=== PATIENT | male | born 1980 | race Caucasian/White ===

== ENCOUNTER 2022-01-25 13:42 | Inpatient (IN) | payer MEDICAID, SELFPAY ==
[2022-01-25 13:42] VITALS: BP 151/86; PULSE 96; RESP 16; TEMP 36.6; O2SAT 100; BMI 28.7
--- NOTE | 2022-01-25 13:56 | EX.ED.SAOD ---
HPI History of Present Illness Chief Complaint: Substance Abuse Narrative Narrative: Patient presents for detox from opiates. He states that his brothers have both been through the program here. He admits to snorting fentanyl yesterday evening. This morning, few hours ago, there was some residual left that he snorted. He states he starting to feel nauseated and shaky. He has not been through a formal detox program previously, but states that he has self detoxed. He also admits to smoking crystal meth on occasion. He does not drink alcohol. He does smoke cigarettes. He denies any suicidal ideation. He presents for entry into the detox program for opiates. [facility] Medical History (Updated 01/25/22 @ 14:[address] Jodi Calixto DO) Methamphetamine use Opiate abuse, continuous Tobacco abuse Home Medications NK 01/25/22 [History Last Taken Unknown] Allergy/AdvReac Type Severity Reaction Status Date / Time No Known Allergies Allergy Verified 01/25/22 13:44 Family History (Updated 01/25/22 @ 14:[address] Jodi Calixto DO) Other Opiate abuse, continuous Social History (Updated 01/25/22 @ 14:[address] Jodi Calixto DO) Smoking Status: Current every day smoker tobacco type: cigarettes Smoking packs per day: 1 Smoking cigarettes per day: 20.0 alcohol intake: never substance use type: heroin, amphetamines and methamphetamine ROS ROS ED ROS Narrative Constitutional: No fever, no chills. HEENT: No sore throat. No neck pain. No loss of vision. No rhinorrhea. Cardiovascular: No chest pain. No palpitations. No pedal edema. Respiratory: No cough, no shortness of breath. Abdominal: No abdominal pain. Positive nausea. No vomiting. Genitourinary: No dysuria. No hematuria. Musculoskeletal: No myalgias. No arthralgias. Neurologic: No headaches. No dizziness. No lightheadedness. Positive shakiness. Skin: No rash. No change in color. Psychiatric: No depression. No anxiety. EXAM Physical Exam Const Vital Signs: 01/25/22 13:42 Temperature 98 F Temperature Source Temporal Pulse Rate 96 Respiratory Rate 16 Blood Pressure 151/86 H Blood Pressure Mean 107 Pulse Ox 100 Oxygen Delivery Method Room Air MDM MDM MDM Narrative Medical decision making narrative: Laboratory work and urine drug screen will be obtained. I will discuss patient with hospitalist for admission for detox. I discussed the patient with Dr. Calixto. He will be admitted to [facility] in stable condition. Discharge Plan Dx/Rx/DC Orders Clinical Impression: Fentanyl use disorder, severe, dependence, Polysubstance abuse, Desire for detoxification Disposition Disposition: Acute Care Hospital [facility]
--- NOTE | 2022-01-25 14:48 | PCM.HP.STD ---
[facility] - General General Date of Admission: 01/25/22 Date of Service: 01/25/22 Chief Complaint: Opiate detox HPI Narrative IMELDA TOM, is a 41 M who presented to the emergency department was coming hospital requesting opiate detox. The patient states that he has been a longtime user of heroin and was initially an IV user until his veins were difficult to access and now he uses intranasal heroin. He states he uses as much as he can do daily which is approximately 2 to 3 g. He uses approximately 1 g per use. He states he also uses intermittent methamphetamines. He denies any other drug use. He smokes approximately 1 pack of cigarettes a day and denies any alcohol use. His last use was last evening at approximately 530. He has never undergone detox before but states that both of his brothers have been through the detox program here. All lab work are pending at the time of admission. [facility] Medical History (Updated 01/25/22 @ 14:[address] Jodi Calixto DO) Methamphetamine use Opiate abuse, continuous Tobacco abuse Home Medications NK 01/25/22 [History Last Taken Unknown] Allergy/AdvReac Type Severity Reaction Status Date / Time No Known Allergies Allergy Verified 01/25/22 13:44 Family History (Updated 01/25/22 @ 14:[address] Jodi Calixto DO) Other Opiate abuse, continuous no surgical history Social History (Updated 01/25/22 @ 14:[address] Jodi Calixto DO) Smoking Status: Current every day smoker tobacco type: cigarettes Smoking packs per day: 1 Smoking cigarettes per day: 20.0 alcohol intake: never substance use type: heroin, amphetamines and methamphetamine ROS Constitutional Constitutional: Reports chills and malaise; Denies anorexia, change in weight, fatigue, fever(s), night sweats, weakness or other Eyes Eyes: Denies blurry vision, change in eye color, change in vision, discharge from eye(s), double vision, erythema, eye pain, loss of vision or other ENT HEENT: Reports ear pain and hearing loss; Denies abnormal hearing, dysphagia, epistaxis, headache(s), nasal congestion, nasal discharge, post nasal drip, sinus pressure, sore throat or other Cardiovascular Cardiovascular: Denies chest pain, claudication, dyspnea on exertion, edema, lightheadedness, orthopnea, palpitations, paroxysmal nocturnal dyspnea, rapid heart rate, syncope or other Respiratory/Chest Respiratory/Chest: Denies cough, dyspnea, excessive phlegm production, hemoptysis, productive cough, shortness of breath at rest, shortness of breath with exertion, wheezing or other Gastrointestinal Gastrointestinal: Denies abdominal pain, coffee ground emesis, constipation, diarrhea, dyspepsia, hematemesis, hematochezia, loose stools, melena, nausea, vomiting or other Genitourinary Genitourinary: Denies burning urination, difficulty urinating, dysuria, hematuria, nocturia, urinary frequency, urinary hesitancy, urinary incontinence, urinary urgency or other Musculoskeletal Musculoskeletal: Denies arthralgias, back pain, joint pain, joint stiffness, joint swelling, myalgias, neck pain or other Neurologic Neurologic: Denies abnormal gait, abnormal speech, confusion, disequilibrium, dizziness, focal weakness, headache(s), numbness, paresthesias, seizure-like activity, seizures, syncope, tingling, tremor(s) or other Psychiatric Psychiatric: Reports anxiety; Denies depression, homicidal ideation, suicidal ideation or other Endocrine Endocrinology: Denies change in body appearance, cold intolerance, excessive sweating, heat intolerance, polydipsia, polyuria or other Hematologic/Lymphatic Hematologic/Lymphatic: Denies anemia, easy bleeding, easy bruising, lymphadenopathy or other Allergic/Immunologic Allergic/Immunologic: Denies rhinitis, hives, eczemia, asthma or other Vital Signs Vital Signs Vital Signs: 01/25/22 13:42 Temperature 98 F Temperature Source Temporal Pulse Rate 96 Respiratory Rate 16 Blood Pressure 151/86 H Blood Pressure Mean 107 Pulse Ox 100 Oxygen Delivery Method Room Air Weight Weight: 90.718 kg Body Mass Index (BMI) 28.7 Physical Exam Const alert, oriented x3, no apparent distress and well nourished Constitutional Narrative: Overweight middle-aged white male sitting up in bed, nursing at bedside obtaining lab, appears comfortable nontoxic General Appearance: cooperative HEENT normocephalic, head/scalp atraumatic, hearing grossly normal bilaterally and moist oral mucous membranes HEENT Narrative: Mallampati is 2, dentition is poor, no thrush Eyes PERRL, EOMs intact bilaterally and conjunctivae normal Neck no lymphadenopathy, supple and no JVD Neck Narrative: Trachea midline, no thyroid enlargement Resp normal respiratory effort, no retractions, no use of accessory muscles and clear to auscultation bilaterally Auscultation: Negative for crackles, rales, rhonchi or wheezes Cardio regular rate, regular rhythm, S1 normal heart sound, S2 normal heart sound, no murmurs, no rub, no gallops, no clicks and no JVD GI normal to inspection, nondistended, normoactive bowel sounds, soft to palpation, non-tender and non-distended; Negative for hepatosplenomegaly Extremity no clubbing, cyanosis or edema Peripheral Pulses: Yes pulses 2+ throughout Skin no wounds, skin turgor normal, no jaundice, no petechiae and no mottling Skin Narrative: Old track fong noted Neuro oriented x3, CN's II-XII intact bilaterally, moves all extremities and no focal motor deficits Sensorium / Orientation: awake and alert Speech: speech normal Motor Exam: strength 5/5 throughout Psych Mood & Affect: anxious Assessment & Plan Assessment/Plan (1) Polysubstance abuse: (2) Desire for detoxification: (3) Opiate withdrawal: PLAN: Acute opiate withdrawal -Uses 2 to 3 g daily -Last use was on the evening of 01/24/2022 -Start buprenorphine taper when appropriate per COWS score -Supportive medications -With history of IV use we will check HIV and hepatitis panel -Consult 180 Tobacco abuse -Nicotine patch 21 mics -Patient smokes 1 pack/day -Recommend cessation Polysubstance abuse -Urine tox is pending -Patient admits to opiate use in the form of heroin as well as amphetamine use DVT prophylaxis -Low risk -Early ambulation protocol CODE STATUS -Full code Charges/Coding Visit Charges Inpatient E&M: 42848 Init Hosp L2
[2022-01-25 15:51] LABS: ALB/GLOB Ratio 1.1 RATIO (0.9-2.4); AST(SGOT) 12 U/L (15-37); Alanine Aminotransfer ALT/SGPT 18 U/L (16-61); Alkaline Phosphatase 82 U/L (45-117); Anion Gap 4 (5-15); BUN 13 mg/dL (7-18); BUN/Creat Ratio 16.6 RATIO (10-20); Calcium,Total 8.8 mg/dL (8.5-10.1); Chloride 109 mmol/L (98-107); Creatinine, Serum 0.78 mg/dL (0.70-1.30); EST Glomerular Filtration Rate 117 mL/min (>60); Est Glom Filt Rate - Afr Amer 141 mL/min (>60); Estimated Creatinine Clearance 131.29 ml/min; Globulin 3.7 g/dL (2.2-4.2); Glucose 122 mg/dL (74-106); Protein, Total 7.7 g/dL (6.4-8.2); Sodium Level 137 mmol/L (136-145)
[2022-01-25 16:03] VITALS: BMI 28.6
[2022-01-25 16:09] VITALS: BP 129/76; PULSE 84; RESP 19; TEMP 36.8; O2SAT 97
--- NOTE | 2022-01-25 16:12 | NURSING ---
per Dr. Beckman, okay to send patient upstairs without urine and labs due to difficult stick. this RN also spoke with Dr Calixto and she said it was fine to take pt upstairs without labs.
--- NOTE | 2022-01-25 16:12 | CM.ED ---
Social Work Met with patient in room. Introduced self and psychologist social role. Patient agreeable to speak with this psychologist social. Patient confirms to be seeking medical management of withdrawal symptoms and to have signed contract for [facility]. Patient denies any questions/concerns and that support system is aware that patient is in the hospital. Patient reports history of services thought [facility] as an outpatient. Telephone call to treatment navigatorMassiel. Massiel updated on patient admission to [facility]. Massiel plans to see patient tomorrow. PLAN: [facility]. Sharon SNIDER, BJORN
[2022-01-25 16:27] VITALS: BP 119/68; PULSE 91; RESP 18; TEMP 36.8; O2SAT 99
[2022-01-25] MEDS: hydrOXYzine PAM 25 MG Capsule 50 MG PO ×2 (16:38→21:40)
[2022-01-25] MEDS: Acetaminophen 325 MG Tablet 650 MG PO (16:38)
[2022-01-25] MEDS: Ondansetron 8 MG Tablet PO (16:38)
[2022-01-25] MEDS: Buprenorphine HCl 2 MG TAB.SUBL SL (17:10)
[2022-01-25] MEDS: Carbamide Peroxide 15 ML Bottle 5 DRP OTIC (17:11)
[2022-01-25 19:55] LABS: Amphetamine Urine VISTA NEGATIVE (<1000 ng/mL); Barbiturate Urine VISTA NEGATIVE (< 200 ng/mL); Benzodiazepine Urine VISTA NEGATIVE (< 200 ng/mL); Cocaine Urine VISTA POSITIVE (< 300 ng/mL); Ecstacy Urine VISTA NEGATIVE (< 500 ng/mL); Methadone Urine VISTA NEGATIVE (< 300 ng/mL); PCP Urine VISTA NEGATIVE (< 25 ng/mL); THC Urine VISTA NEGATIVE (< 50 ng/mL); Vista UDS pH Range 6
[2022-01-25 20:30] VITALS: BP 124/69; PULSE 80; RESP 18; TEMP 37.2; O2SAT 96
[2022-01-26] MEDS: Buprenorphine HCl 2 MG TAB.SUBL SL ×3 (01:53→16:57)
[2022-01-26 02:05] VITALS: BP 133/74; PULSE 71; RESP 18; TEMP 36.9; O2SAT 98
[2022-01-26 05:09] LABS: Absolute Lymphocyte Count 2.45 X10^3/uL (0.83-4.51); Absolute Neutrophil Count 7.9 X10^3/uL (2.0-7.7); Basophil# 0.08 X10^3/uL; Basophil% 0.7 % (0-1); Eosinophils% 1.7 % (0-5); Hematocrit 38.5 % (40-54); Hemoglobin 13.5 g/dL (13.0-16.5); Lymphocyte # 2.45 X10^3/ul (0.83-4.51); Lymphocyte % 20.8 % (19-41); Mean Corp Hgb Conc 35.1 g/dL (32-36); Mean Corpuscular Hgb 29.7 pg (27.0-32.0); Mean Corpuscular Volume 84.6 fL (80-94); Mean Platelet Vol. 10.3 fl (6.2-12.0); Monocyte# 1.09 X10^3/uL; Monocyte% 9.2 % (0-10); NRBC Flagged by Analyzer 0 % (0-5); Neutrophil # 7.93 X10^3/uL (2.7-7.7); Neutrophil % 67.3 % (47-70); Platelet Count 283 K/mm3 (150-450); RBC Distribution Width CV 12.7 % (11.6-14.6); RBC Distribution Width SD 38.5 fl (35.1-43.9); Red Blood Count 4.55 M/mm3 (4.6-6.2); White Blood Count 11.8 K/mm3 (4.4-11.0)
[2022-01-26 05:41] LABS: Alcohol, Blood (Medical)-Serum < 3.0 mg/dL
[2022-01-26 08:55] VITALS: BP 145/81; PULSE 78; RESP 16; TEMP 36.7; O2SAT 98
[2022-01-26 09:02] LABS: HIV - WCH Non-Reactive (Nonreactive); Hepatitis B Surface Antibody Reactive; Hepatitis B Surface Antigen Non-Reactive (Nonreactive); Hepatitis C Antibody Non-Reactive (Nonreactive)
--- NOTE | 2022-01-26 13:05 | ADDICTION ---
This typewriter ribbon winder met with PT to conduct ASAM, MSE, DUDIT assessments and to plan for d/c. PT A+Ox4 and participated actively. All assessments completed, and placed in PT's chart. PT plans to f/u with individual counselor at [facility] for follow-up counseling services. PT did not indicate a need for transportation post d/c from [facility].
--- NOTE | 2022-01-26 13:46 | PN.HOSP_ITS ---
Subjective Subjective Patient seen and examined. He complained of left shoulder pain, which he says he gets every time he tries to detox from opiates. Pain goes with use of opiates. He denies any abdominal cramps, increased sweating or tremors. Review of systems otherwise negative. Objective Data Objective Data Vital Signs: Vital Signs Temp Pulse Resp BP Pulse Ox 98.1 F 78 16 145/81 H 98 01/26/22 08:55 01/26/22 08:55 01/26/22 08:55 01/26/22 08:55 01/26/22 08:55 Oxygen Delivery Method Room Air Weight: 199 lb 15.348 oz Body Mass Index (BMI) 28.6 Intake & Output: Intake and Output for Last 24 Hours 01/24/22 01/25/22 01/26/22 23:59 23:59 23:59 Intake Total 125 / 125 Balance 125 / 125 Lab / Micro Data Result Diagrams: 01/26/22 05:02 01/25/22 15:30 Labs: Laboratory Results - last 24 hr 01/25/22 15:30: Sodium 137, Potassium 4.0, Chloride 109 H, Carbon Dioxide 24.0, Anion Gap 4 L, BUN 13, Creatinine 0.78, Estim Creat Clear Calc 131.29, Est GFR (MDRD) Af Amer 141, Est GFR (MDRD) Non-Af 117, BUN/Creatinine Ratio 16.6, Glucose 122 H, Calcium 8.8, Total Bilirubin 0.50, AST 12 L, ALT 18, Alkaline Phosphatase 82, Total Protein 7.7, Albumin 4.0, Globulin 3.7, Albumin/Globulin Ratio 1.1 01/25/22 19:16: Urine Opiates Screen POSITIVE H, Urine Methadone Screen NEGATIVE, Ur Barbiturates Screen NEGATIVE, Ur Phencyclidine Scrn NEGATIVE, Ur Amphetamines Screen NEGATIVE, MDMA (Ecstasy) Screen NEGATIVE, U Benzodiazepines Scrn NEGATIVE, Urine Cocaine Screen POSITIVE H, U Cannabinoids Screen NEGATIVE, Ur Drug Screen Comment 01/26/22 05:02: WBC 11.8 H, RBC 4.55 L, Hgb 13.5, Hct 38.5 L, MCV 84.6, MCH 29.7, MCHC 35.1, RDW Std Deviation 38.5, RDW Coeff of Roselyn 12.7, Plt Count 283, MPV 10.3, Immature Gran % (Auto) 0.300, Neut % (Auto) 67.3, Lymph % (Auto) 20.8, Linn % (Auto) 9.2, Eos % (Auto) 1.7, Baso % (Auto) 0.7, Absolute Neuts (auto) 7.9 H, Absolute Lymphs (auto) 2.45, Nucleated RBC % 0 01/26/22 05:02: Ethyl Alcohol < 3.0 01/26/22 05:02: Hep Bs Antigen Non-Reactive, Hep Bs Antibody Reactive, Hepatitis C Antibody Non-Reactive, HIV 1&2 Antibody Non-Reactive Physical Exam Const alert, oriented x3 and no apparent distress Exam Limitations: no limitations HEENT head/scalp atraumatic, moist oral mucous membranes and oropharynx normal Head and Scalp: normocephalic Eyes PERRL, EOMs intact bilaterally and conjunctivae normal Neck no lymphadenopathy, supple and no JVD Resp normal respiratory effort, no retractions, no use of accessory muscles and clear to auscultation bilaterally Cardio regular rate, regular rhythm, S1 normal heart sound, S2 normal heart sound and no murmurs GI normal to inspection, nondistended, normoactive bowel sounds, soft to palpation, non-tender, non-distended and hepatosplenomegaly Extremity normal to inspection, full ROM and no clubbing, cyanosis or edema Peripheral Pulses: Yes pulses 2+ throughout Skin no rashes or lesions noted Neuro oriented x3 and CN's II-XII intact bilaterally Sensorium / Orientation: awake and alert Psych affect normal Assessment & Plan Assessment/Plan (1) Opiate withdrawal: (2) Polysubstance abuse: (3) Desire for detoxification: PLAN: #Acute opioid withdrawal * on opioid withdrawal protocol with buprenorphine * adjunctive meds for symptomatic relief * monitor COWS score * urine tox was also positive for cocaine in addition to opiates * hep B surface antibody was positive; hep C antibody and HIV screen were negative. * #Nicotine dependence * counseled to quit. Nicotine patch 21mg daily * DVT prophylaxis: low risk. Encourage ambulation. Charges/Coding Visit Charges Inpatient E&M: 04139 Subs Hosp L2
[2022-01-26 15:00] VITALS: BP 121/74; PULSE 71; RESP 18; TEMP 36.9; O2SAT 97
[2022-01-26] MEDS: Gabapentin 300 MG Capsule PO (19:31)
--- NOTE | 2022-01-26 19:57 | NURSING ---
1919: Pt anxious and expressing interests in leaving. Pt educated and encouraged to stay, agreeable to try something for anxiety. PRN given, pt resting in bed. 1954: Pt called again and asked to leave AMA. Will contact
--- NOTE | 2022-01-26 20:08 | NURSING ---
notified of pt's desire to leave AMA. Pt signed form and given belongings.
--- NOTE | 2022-01-27 07:12 | PCM.DC.SUM ---
Providers Date of Admission: 01/25/22 Primary Care Physician: Michelle Primary Care Phys Reason For Visit: ACUTE HEROIN WITHDRAWAL Diagnosis Discharge Diagnosis (1) Opiate withdrawal: Status: Acute Code(s): F11.23 - Opioid dependence with withdrawal (2) Polysubstance abuse: Status: Acute Code(s): F19.10 - Other psychoactive substance abuse, uncomplicated (3) Desire for detoxification: Status: Acute Medications at Discharge Home Medications NK 01/25/22 Hospital Course Operations None Procedures None Summary of Care Provided Minutes Spent on Discharge: 45 Hospital Course: Patient is a 41-year-old male with past medical history as outlined was admitted through the ED on 01/25/2022 for acute opiate withdrawal. Patient usually uses heroin IV and said recently had veins have become difficult to access he was now using intranasal heroin. He used about 2 to 3 g daily. He also used methamphetamines intermittently and admitted to smoking 1 pack of cigarettes daily. He was admitted to be managed for acute opioid withdrawal. He was started on opiate withdrawal protocol with buprenorphine. Patient was tolerating the detox process well until 01/26/2022 when he signed out AGAINST MEDICAL ADVICE. Patient was seen and examined on the day he signed out AGAINST MEDICAL ADVICE. He had initially complained of some shoulder pain which he said he got every time he tried to detox and was only relieved by him using opiates. He had no other complaints and review of systems otherwise negative. Patient however signed out AGAINST MEDICAL ADVICE on the evening of 01/26/2022. Physical Exam Const alert, oriented x3, no apparent distress and well nourished General Appearance: cooperative, comfortable and well kempt Exam Limitations: no limitations HEENT normocephalic, head/scalp atraumatic, hearing grossly normal bilaterally, moist oral mucous membranes and oropharynx normal Eyes PERRL, EOMs intact bilaterally and conjunctivae normal Neck no lymphadenopathy, supple and no JVD Resp normal respiratory effort, no retractions, no use of accessory muscles and clear to auscultation bilaterally Auscultation: Negative for crackles, rales, rhonchi or wheezes Cardio regular rate, regular rhythm, S1 normal heart sound, S2 normal heart sound, no murmurs, no rub, no gallops, no clicks and no JVD GI normal to inspection, nondistended, normoactive bowel sounds, soft to palpation, non-tender, non-distended and hepatosplenomegaly Extremity normal to inspection, full ROM and no clubbing, cyanosis or edema Skin no rashes or lesions noted, no wounds, skin turgor normal, no jaundice, no petechiae and no mottling Skin Narrative: Old track fong noted Neuro oriented x3, CN's II-XII intact bilaterally, moves all extremities and no focal motor deficits Sensorium / Orientation: awake and alert Speech: speech normal Motor Exam: strength 5/5 throughout Psych affect normal Mood & Affect: anxious Weight / BMI Weight Weight: 199 lb 15.348 oz Body Mass Index (BMI) 28.6 ABG / Lab / Microbiology Data Result Diagrams: 01/26/22 05:02 01/25/22 15:30 Laboratory: Laboratory Results - last 24 hr 01/26/22 05:02: Hep Bs Antigen Non-Reactive, Hep Bs Antibody Reactive, Hepatitis C Antibody Non-Reactive, HIV 1&2 Antibody Non-Reactive D/C Instructions Discharge Diet: Low fat / Low cholesterol Discharge Activity: Return to Normal Activity Weight Bearing Status: Weight bearing as tolerated Call your doctor if you observe: Fever of 101 or Higher, Shortness of breath, Swelling in the ankles and Increased palpitations (irregular heartbeat) Meaningful Use Info Meaningful Use Diagnoses (Choose all that apply): None applicable Discharge Plan Admission Admit Date/Time: 01/25/22 14:23 Primary Reason for Your Visit: acute opioid withdrawal Attending Provider: Florence George Primary Care Provider: Care Physician,No Primary Discharge Orders/Prescriptions Prescriptions: No Action NK RF: 0 Referrals / Follow Up: Care Physician,No Primary [Primary Care Provider] - Disposition Disposition (needs filled in before D/C Order can be placed): Against Medical Advice Charges/Coding Visit Charges Inpatient E&M: 23943 Subs Hosp L2
== END 2022-01-26 20:09 | disposition left against medical advice (07) | DRG 770 ==
LOC: ED 14:25 → PCU 14:45
PROVIDERS: Admitting Provider Internal Medicine; Emergency Provider Emergency Medicine; Visit Provider Student in an Organized Health Care Education/Training Program
DX: F11.23 Opioid dependence with withdrawal (principal); F15.90 Other stimulant use, unspecified, uncomplicated; F17.210 Nicotine dependence, cigarettes, uncomplicated
CPT/HCPCS: 36415; 80053; 80307; 82077; 85025; 86703; 86706; 86803; 87340; 99251; 99283; 99406; G0463

== ENCOUNTER 2022-08-07 05:06 | Inpatient (IN) | payer MEDICAID, SELFPAY ==
[2022-08-07] VITALS (8 sets, daily range): BP systolic 126–155; BP diastolic 66–105; PULSE 79–114; RESP 16–20; TEMP 36.4–37.3; O2SAT 94–100; BMI 30.9; BMI 30.7
--- NOTE | 2022-08-07 05:29 | EDS_ITS ---
HPI History of Present Illness Chief Complaint: Substance Abuse Narrative Narrative: Patient is a 42-year-old male who has a history of opioid/fentanyl abuse. He was admitted to the detox program in January of this year. He states he was clean until roughly May and for the past 2 to 2-1/2 months has been using fentanyl daily. He states he can do anywhere from 1 to 5-6 lines a day depending on his supply and how he feels. He states he will also occasionally do crystal meth. He states that he last used crystal meth and fentanyl last night around 11 PM/midnight. He states his younger brother recently went to the program and got clean. He states he now has a desire to do this as well and therefore comes in for evaluation. He denies any suicidal ideation. [facility] Medical History Anxiety Depression Desire for detoxification Methamphetamine use Opiate abuse, continuous Opiate withdrawal Polysubstance abuse Smoker Substance abuse Tobacco abuse Home Medications NK 08/07/22 [History Last Taken Unknown] Allergy/AdvReac Type Severity Reaction Status Date / Time No Known Allergies Allergy Verified 01/25/22 13:44 Family History (Updated 01/25/22 @ 14:[address] Jodi Calixto DO) Other Opiate abuse, continuous Social History (Updated 01/25/22 @ 14:[address] Jodi Calixto DO) Smoking Status: Current every day smoker tobacco type: cigarettes alcohol intake: never substance use type: heroin, amphetamines and methamphetamine ROS ROS ED Constitutional Constitutional ED: Denies chills or fever(s) ENT ENT ED: Denies sore throat Cardiovascular Cardiovascular: Denies chest pain Respiratory/Chest Respiratory/Chest: Denies cough or dyspnea Gastrointestinal Gastrointestinal: Denies abdominal pain, diarrhea, nausea or vomiting Genitourinary Genitourinary ED: Denies dysuria Musculoskeletal Musculoskeletal: Denies myalgias Integumentary Denies rash Neurologic Neurologic: Denies headache(s) Psychiatric Psychiatric: Denies suicidal ideation or suicidal thoughts Hematologic/Lymphatic Hematologic/Lymphatic: Denies easy bleeding or easy bruising EXAM Physical Exam Const Vital Signs: 08/07/22 05:08 Temperature 97.6 F L Temperature Source Oral Pulse Rate 102 H Respiratory Rate 18 Blood Pressure 155/79 H Blood Pressure Mean 104 Pulse Ox 99 Oxygen Delivery Method Room Air Positive well nourished and well developed General Appearance ED: well developed Eyes EOMs intact bilaterally Eyes Narrative: Pupils are slightly constricted and sluggish to respond consistent with history of opioid use approximately 5 hours ago Neck supple Resp normal respiratory effort and clear to auscultation bilaterally Cardio regular rhythm Rate: other Other Details: Slightly tachycardic rate with regular rhythm GI non-tender and non-distended GI Narrative: Abdomen is soft nontender nondistended with hypoactive bowel sounds no voluntary guarding or rigidity no pulsatile mass Auscultation: hypoactive bowel sounds Palpation: soft Extremity normal to inspection Neuro oriented x3 and CN's II-XII intact bilaterally Sensorium / Orientation: alert Psych mental status grossly normal Skin no rashes or lesions noted Skin Narrative: No diaphoresis noted MDM MDM MDM Narrative Medical decision making narrative: Patient presented to the ER slightly tachycardic and hypertensive but otherwise afebrile. He admitted to fentanyl and crystal meth use which she is done in the past. At this time withdrawal symptoms are minimal and he does express desire to go through detox. Therefore at this time basic screening labs will be obtained but as patient is hemodynamically stable he will be admitted to the hospital to undergo the detox program for opioids Discharge Plan Triage Chief Complaint: Substance Abuse ED Provider: Caden Stern Dx/Rx/DC Orders Clinical Impression: Opioid dependence with current use, Polysubstance abuse Prescriptions: No Action NK Primary Care Provider: Care Physician,No Primary Referrals: Care Physician,No Primary [Primary Care Provider] - Disposition Disposition: Acute Care Hospital [facility]
--- NOTE | 2022-08-07 05:29 | HP.PCM.HOS_ITS ---
HPI - General General Date of Admission: 08/07/22 Date of Service: 08/07/22 Chief Complaint: Acute Opiate Withdrawal HPI Narrative The patient is a 42 y/o M w/ PMHx: Opiate Abuse including IV Heroin as well as fentanyl eventually transitioned to intranasal methods secondary to lack of decent vasculature, Hx Methamphetamine use, Tobacco use, Anxiety and Depression, most recently admitted 01/25/22 for opiate withdrawal treatment leaving AMA at that time but notes he was clean for a couple months who now re-presents to the [facility] ED on 08/07/22 with history of onset of early acute opiate withdrawal starting early this morning following last dose of specifically fentanyl the evening prior with mild agitation and restlessness. He notes normally he will start to have body aches, abdominal cramping, nausea in addition. He notes living at home with his mother and his brother who is recently clean. Work-up in the ED included T97.6, heart rate 102, BP 155/79, respiratory rate 18, 99% on room air, pending CBC, CMP, UDS upon requested evaluation of patient. [facility] Medical History (Updated 08/07/22 @ 05:[address] Rose Ordonez MD) Anxiety Depression Methamphetamine use Opioid dependence with current use Polysubstance abuse Substance abuse Tobacco abuse Home Medications NK 08/07/22 [History Last Taken Unknown] Allergy/AdvReac Type Severity Reaction Status Date / Time No Known Allergies Allergy Verified 01/25/22 13:44 Family History (Updated 08/07/22 @ 05:[address] Rose Ordonez MD) Father Opiate abuse, continuous Heart disease Hypertension Mother Heart disease Hypertension Brother Opiate abuse, continuous Surgical History (Updated 08/07/22 @ 05:[address] Rose Ordonez MD) History of dental surgery Social History (Updated 08/07/22 @ 05:[address] Rose Ordonez MD) household members: other details: Lives with his mother and his brother. Smoking Status: Current every day smoker tobacco type: cigarettes Smoking packs per day: 1 Smoking cigarettes per day: 20.0 alcohol intake: never substance use type: heroin, amphetamines, methamphetamine and other details: Hx prior IVDA->transitioned to snorting. ROS ROS Narrative Admission Review of Systems: CONSTITUTIONAL: No weight loss, fever, chills, + weakness or fatigue. HEENT: + Mild rhinorrhea/congestion. Eyes: No visual loss, blurred vision, double vision or yellow sclerae. Ears, Nose, Throat: No hearing loss, sneezing or sore throat. SKIN: No rash or itching, lesions, wounds. CARDIOVASCULAR: No chest pain, chest pressure or chest discomfort, palpitations, edema, orthopnea, syncopal events. RESPIRATORY: No shortness of breath, cough or sputum, wheezing, hemoptysis. GASTROINTESTINAL: No anorexia, abdominal cramping, nausea, vomiting, diarrhea, melena, BRBPR. GENITOURINARY: No dysuria, frequency, urgency or retention. NEUROLOGICAL: No headache, dizziness, syncope, paralysis, ataxia, numbness or tingling in the extremities, focal weakness, change in bowel or bladder control, seizure. MUSCULOSKELETAL: + muscle, back pain, joint pain or stiffness. HEMATOLOGIC: No anemia, bleeding or bruising. LYMPHATICS: No enlarged nodes. No history of splenectomy. PSYCHIATRIC: + history of depression or anxiety. ENDOCRINOLOGIC: No reports of sweating, cold or heat intolerance. No polyuria or polydipsia. ALLERGIES: No history of asthma, hives, eczema or rhinitis. Vital Signs Vital Signs Vital Signs: 08/07/22 05:08 Temperature 97.6 F L Temperature Source Oral Pulse Rate 102 H Respiratory Rate 18 Blood Pressure 155/79 H Blood Pressure Mean 104 Pulse Ox 99 Oxygen Delivery Method Room Air Weight Weight: 216 lb 0.848 oz Body Mass Index (BMI) 30.9 Physical Exam Narrative Physical Examination: General: Awake, alert, oriented x 3 and cooperative, seated upright in the ED bed, restless, notes withdrawal symptoms not yet severe. Skin: Normal color, normal turgor, no icterus, no cyanosis. HEENT: AT/NC, EOMI, PERRLA, mildly dry MM, no carotid bruits or JVD noted. Lungs: Diminished, greater bases, appropriate effort, no rales, ronchi or wheezing. Heart: Mildly tachycardic with regular rhythm; no gallop, rub audible. Abdomen: Soft, NTTP, ND, hyperactive BS, no HSM. Extremities: No cyanosis, clubbing, or edema. Neurological: Patient awake, alert, oriented as noted, cognitive function intact; pupils equally reactive to light and accommodation, cranial nerves II- XII grossly normal, moving all 4 extremities, no focal deficits, strength preserved, restless. Psychiatric: Affect appears fatigued, restless, no acute evidence of depressive or anxiety feelings but does have underlying history. Results Lab / Micro Data Result Diagrams: 08/07/22 05:13 08/07/22 05:13 Assessment & Plan Assessment/Plan (1) Polysubstance abuse: PLAN: Plan The patient is a 42 y/o M w/ PMHx: Opiate Abuse including IV Heroin as well as fentanyl eventually transitioned to intranasal methods secondary to lack of decent vasculature, Hx Methamphetamine use, Tobacco use, Anxiety and Depression, most recently admitted 01/25/22 for opiate withdrawal treatment leaving AMA at that time but notes he was clean for a couple months who now re-presents to the [facility] ED on 08/07/22 with history of onset acute opiate withdrawal. #1. Acute Opiate Withdrawal: Will admit to AL, routine labs including CBC, CMP, urine for drug screen obtained in the ED and pending upon evaluation, will initiate and continue on protocol with tapering course of Subutex, as needed tylenol, ibuprofen, bowel regimen, gabapentin, Bentyl, Vistaril, methocarbamol, clonidine, PRN nightly trazodone for insomnia, IV fluids, IV antiemetics. Once patient clinically improved and completion of taper nearing will plan consultation with case management for transition to next level of rehabilitation care. #2. Elevated BP without hypertensive diagnosis: Likely secondary to acute presentation but will continue to monitor and if remains elevated would add oral regimen, as needed IV hydralazine in interim. #3. Polysubstance Abuse, IVDA Hx: Given patient history of prior IVDA now transitioned to intranasal regimen, to be cautious will obtain HIV and hepatitis panel. If patient were hepatitis positive he would currently not be a candidate for treatment until he was clean, sober x 6 months, documented attendance NA or AA meetings, counseling and ongoing negative drug screens. #4. Anxiety and depression: Patient's not on any chronic regimen per current list, likely contributes to substance abuse, encourage counseling and treatment as needed with 180. #5. Tobacco Abuse: Encouraged cessation, inpatient consultation per RT, NR if desired. #6. DVT prophylaxis: Low risk. Charges/Coding Visit Charges Inpatient E&M: 89544 Init Hosp L2
[2022-08-07 05:38] LABS: Absolute Lymphocyte Count 3.38 X10^3/uL (0.83-4.51); Basophil# 0.09 X10^3/uL; Eosinophil# 0.36 X10^3/uL; Hematocrit 39.7 % (40-54); Hemoglobin 12.9 g/dL (13.0-16.5); Lymphocyte # 3.38 X10^3/ul (0.83-4.51); Lymphocyte % 37.5 % (19-41); Mean Corp Hgb Conc 32.5 g/dL (32-36); Mean Corpuscular Hgb 30.4 pg (27.0-32.0); Mean Corpuscular Volume 93.4 fL (80-94); Mean Platelet Vol. 12.1 fl (6.2-12.0); Monocyte# 1.15 X10^3/uL; Monocyte% 12.7 % (0-10); NRBC Flagged by Analyzer 0 % (0-5); Neutrophil # 4.02 X10^3/uL (2.7-7.7); Neutrophil % 44.6 % (47-70); POSITIVE COUNT YES; RBC Distribution Width CV 12.9 % (11.6-14.6); RBC Distribution Width SD 44.3 fl (35.1-43.9); Red Blood Count 4.25 M/mm3 (4.6-6.2)
[2022-08-07 05:42] LABS: Differential Indicated SCAN CRITERIA MET
[2022-08-07 06:13] LABS: Differential Comment SCANNED; Platelet Estimate ADEQUATE (ADEQ)
[2022-08-07 06:21] LABS: ALB/GLOB Ratio 1.1 RATIO (0.9-2.4); AST(SGOT) 27 U/L (15-37); Alanine Aminotransfer ALT/SGPT 23 U/L (16-61); Albumin, Serum 3.6 g/dL (3.2-5.0); Alkaline Phosphatase 98 U/L (45-117); Anion Gap 6 (5-15); BUN 22 mg/dL (7-18); BUN/Creat Ratio 24.8 RATIO (10-20); Calcium,Total 8.6 mg/dL (8.5-10.1); Chloride 107 mmol/L (98-107); Creatinine, Serum 0.89 mg/dL (0.70-1.30); EST Glomerular Filtration Rate 101 mL/min (>60); Est Glom Filt Rate - Afr Amer 122 mL/min (>60); Estimated Creatinine Clearance 113.92 ml/min; Globulin 3.4 g/dL (2.2-4.2); Glucose 99 mg/dL (74-106); Potassium 4.4 mmol/L (3.5-5.1); Sodium Level 137 mmol/L (136-145)
[2022-08-07 06:24] LABS: Alcohol, Blood (Medical)-Serum < 3.0 mg/dL
[2022-08-07 06:34] LABS: Amphetamine Urine VISTA POSITIVE (<1000 ng/mL); Barbiturate Urine VISTA NEGATIVE (< 200 ng/mL); Benzodiazepine Urine VISTA NEGATIVE (< 200 ng/mL); Cocaine Urine VISTA NEGATIVE (< 300 ng/mL); Ecstacy Urine VISTA POSITIVE (< 500 ng/mL); Methadone Urine VISTA NEGATIVE (< 300 ng/mL); PCP Urine VISTA NEGATIVE (< 25 ng/mL); THC Urine VISTA NEGATIVE (< 50 ng/mL); Vista UDS pH Range 5
[2022-08-07 09:03] LABS: HIV - WCH Non-Reactive (Nonreactive)
[2022-08-07 09:13] LABS: Hepatitis B Surface Antibody Reactive; Hepatitis B Surface Antigen Non-Reactive (Nonreactive); Hepatitis C Antibody Non-Reactive (Nonreactive)
[2022-08-07] MEDS: Buprenorphine HCl 2 MG TAB.SUBL SL ×2 (09:48→17:09)
[2022-08-07] MEDS: Ensure Plus High Protein 120 ML LIQUID PO (09:50)
--- NOTE | 2022-08-07 11:17 | ADDICTION ---
This policy writer typist attempted to meet with PT. PT was asleep and did not rouse to verbal queuing. This policy writer typist will attempt to meet with PT at next visit on 08/08/21.?
[2022-08-07] MEDS: hydrOXYzine PAM 25 MG Capsule 50 MG PO ×2 (14:02→23:19)
--- NOTE | 2022-08-07 14:32 | PCM.PN.HOSP ---
Subjective Subjective DOS: 08/07/2022 CC: Aches Patient reports that he is feeling achy and unwell, just got Subutex 10 minutes before evaluation. No diarrhea, does not necessarily feel sweaty, no lacrimation or rhinorrhea. Patient still motivated for inpatient detox. No chest pain or shortness of breath. Fluids have been ordered but unable to obtain IV, patient is eating and drinking we will hold off on IV fluids Objective Data Objective Data Vital Signs: Vital Signs Temp Pulse Resp BP Pulse Ox O2 Del Method 98.4 F 114 H 16 153/66 H 98 Room Air 08/07/22 08:44 08/07/22 08:44 08/07/22 08:44 08/07/22 08:44 08/07/22 08:44 08/07/22 08:44 Oxygen Delivery Method Room Air Weight: 97 kg Body Mass Index (BMI) 30.7 Lab / Micro Data Result Diagrams: 08/07/22 05:13 08/07/22 05:13 Labs: Laboratory Results - last 24 hr 08/07/22 05:13: WBC 9.0, RBC 4.25 L, Hgb 12.9 L, Hct 39.7 L, MCV 93.4, MCH 30.4, MCHC 32.5, RDW Std Deviation 44.3 H, RDW Coeff of Roselyn 12.9, Plt Count RADIO DISC JOCKEY, MPV 12.1 H, Immature Gran % (Auto) 0.200, Neut % (Auto) 44.6 L, Lymph % (Auto) 37.5, [place] % (Auto) 12.7 H, Eos % (Auto) 4.0, Baso % (Auto) 1.0, Absolute Neuts (auto) 4.0, Absolute Lymphs (auto) 3.38, Nucleated RBC % 0, Differential Comment SCANNED, Platelet Estimate ADEQUATE 08/07/22 05:13: Sodium 137, Potassium 4.4, Chloride 107, Carbon Dioxide 24.0, Anion Gap 6, BUN 22 H, Creatinine 0.89, Estim Creat Clear Calc 113.92, Est GFR (MDRD) Af Amer 122, Est GFR (MDRD) Non-Af 101, BUN/Creatinine Ratio 24.8 H, Glucose 99, Calcium 8.6, Total Bilirubin 0.30, AST 27, ALT 23, Alkaline Phosphatase 98, Total Protein 7.0, Albumin 3.6, Globulin 3.4, Albumin/Globulin Ratio 1.1 08/07/22 05:13: Ethyl Alcohol < 3.0 08/07/22 05:40: Urine Opiates Screen NEGATIVE, Urine Methadone Screen NEGATIVE, Ur Barbiturates Screen NEGATIVE, Ur Phencyclidine Scrn NEGATIVE, Ur Amphetamines Screen POSITIVE H, MDMA (Ecstasy) Screen POSITIVE H, U Benzodiazepines Scrn NEGATIVE, Urine Cocaine Screen NEGATIVE, U Cannabinoids Screen NEGATIVE, Ur Drug Screen Comment 08/07/22 06:00: HIV 1&2 Antibody Non-Reactive 08/07/22 07:15: Hep Bs Antigen Non-Reactive, Hep Bs Antibody Reactive, Hepatitis C Antibody Non-Reactive Physical Exam Const alert Constitutional Narrative: Oriented, appears slightly diaphoretic HEENT normocephalic and head/scalp atraumatic Eyes Eyes Narrative: EOM grossly intact, anicteric Neck supple Resp normal respiratory effort and clear to auscultation bilaterally Cardio regular rate and regular rhythm GI soft to palpation, non-tender and non-distended Extremity Extremity Narrative: No edema appreciated Neuro moves all extremities Neuro Narrative: No overt focal deficits appreciated Psych Psych Narrative: Cooperative Assessment & Plan Assessment/Plan (1) Polysubstance abuse: PLAN: Plan The patient is a 42 y/o M w/ PMHx: Opiate Abuse including IV Heroin as well as fentanyl eventually transitioned to intranasal methods secondary to lack of decent vasculature, Hx Methamphetamine use, Tobacco use, Anxiety and Depression, most recently admitted 01/25/22 for opiate withdrawal treatment leaving [facility] at that time but notes he was clean for a couple months who now re-presents to the [facility] ED on 08/07/22 with history of onset acute opiate withdrawal. #Acute opiate withdrawal - Subutex taper initiated - As needed Tylenol, ibuprofen, bowel regimen, gabapentin, Bentyl, Vistaril, methocarbamol, clonidine - As needed trazodone nightly - As needed antiemetics -Once patient begins to clinically improve will discuss further discharge planning ? UDS on admission positive for amphetamines and MDMA, prior to admission he reported using fentanyl and heroin. Does have history of IVDA however could no longer find vasculature and transition to intranasal route ? Hepatitis panel and HIV negative for acute process #Elevated BP without hypertensive diagnosis Likely secondary to opioid withdrawal, continue Subutex taper Has hydralazine as needed Would benefit from following with a primary care physician upon discharge #Polysubstance Abuse, IVDA Hx ?UDS positive for MDMA and amphetamines EtOH negative Hepatitis and HIV panel negative. #Anxiety and depression Patient's not on any chronic regimen per current list, likely contributes to substance abuse, encourage counseling and treatment as needed with 180. # tobacco Abuse: Encouraged cessation, inpatient consultation per RT, NR if desired. # DVT prophylaxis: Low risk. Charges/Coding Visit Charges Inpatient E&M: 02220 Subs Hosp L2
[2022-08-07] MEDS: cloNIDine HCl 0.1 MG Tablet PO (19:18)
[2022-08-07] MEDS: Gabapentin 300 MG Capsule PO (19:19)
[2022-08-07] MEDS: Dicyclomine 10 MG Capsule 20 MG PO (19:19)
[2022-08-07] MEDS: Methocarbamol 750 MG Tablet 1500 MG PO (19:19)
[2022-08-08] MEDS: Buprenorphine HCl 2 MG TAB.SUBL SL ×3 (01:00→16:59)
[2022-08-08 02:00] VITALS: BP 109/82; PULSE 71; RESP 18; TEMP 37.1; O2SAT 96
[2022-08-08] MEDS: Methocarbamol 750 MG Tablet 1500 MG PO ×3 (06:31→20:41)
[2022-08-08] MEDS: hydrOXYzine PAM 25 MG Capsule 50 MG PO ×2 (06:31→15:53)
--- NOTE | 2022-08-08 08:21 | PN.HOSP_ITS ---
Subjective Subjective DOS 08/08/2022 CC: Achy Patient continues to feel achy and sweaty, reports feeling just uncomfortable in general. No diarrhea yet , has been eating. Tolerating Subutex. Denies chest pain or shortness of breath. No other complaints voiced this a.m. Objective Data Objective Data Vital Signs: Vital Signs Temp Pulse Resp BP Pulse Ox O2 Del Method 98.7 F 71 18 109/82 H 96 Room Air 08/08/22 02:00 08/08/22 02:00 08/08/22 02:00 08/08/22 02:00 08/08/22 02:00 08/08/22 07:57 Oxygen Delivery Method Room Air Weight: 97 kg Body Mass Index (BMI) 30.7 Intake & Output: Intake and Output for Last 24 Hours 08/06/22 08/07/22 08/08/22 23:59 23:59 23:59 Intake Total 600 / 1400 800 / 800 Balance 600 / 1400 800 / 800 Lab / Micro Data Result Diagrams: 08/07/22 05:13 08/07/22 05:13 Labs: Laboratory Results - last 24 hr 08/07/22 06:00: HIV 1&2 Antibody Non-Reactive 08/07/22 07:15: Hep Bs Antigen Non-Reactive, Hep Bs Antibody Reactive, Hepatitis C Antibody Non-Reactive Physical Exam Const alert Constitutional Narrative: Oriented, appears slightly diaphoretic HEENT normocephalic and head/scalp atraumatic Eyes Eyes Narrative: EOM grossly intact, anicteric Neck supple Resp normal respiratory effort and clear to auscultation bilaterally Cardio regular rate and regular rhythm GI soft to palpation, non-tender and non-distended Extremity Extremity Narrative: No edema appreciated Neuro moves all extremities Neuro Narrative: No overt focal deficits appreciated Psych Psych Narrative: Cooperative Assessment & Plan Assessment/Plan (1) Polysubstance abuse: PLAN: Plan The patient is a 42 y/o M w/ PMHx: Opiate Abuse including IV Heroin as well as fentanyl eventually transitioned to intranasal methods secondary to lack of decent vasculature, Hx Methamphetamine use, Tobacco use, Anxiety and Depression, most recently admitted 01/25/22 for opiate withdrawal treatment leaving AMA at that time but notes he was clean for a couple months who now re-presents to the [facility] ED on 08/07/22 with history of onset acute opiate withdrawal. #Acute opiate withdrawal -Continue Subutex taper - As needed Tylenol, ibuprofen, bowel regimen, gabapentin, Bentyl, Vistaril, methocarbamol, clonidine - As needed trazodone nightly - As needed antiemetics -Once patient begins to clinically improve will discuss further discharge planning ? UDS on admission positive for amphetamines and MDMA, prior to admission he reported using fentanyl and heroin. Does have history of IVDA however could no longer find vasculature and transition to intranasal route ? Hepatitis panel and HIV negative for acute process #Elevated BP without hypertensive diagnosis Likely secondary to opioid withdrawal, continue Subutex taper Has hydralazine as needed Would benefit from following with a primary care physician upon discharge #Polysubstance Abuse, IVDA Hx ?UDS positive for MDMA and amphetamines EtOH negative Hepatitis and HIV panel negative. #Anxiety and depression Patient's not on any chronic regimen per current list, likely contributes to substance abuse, encourage counseling and treatment as needed with 180. # tobacco Abuse: Encouraged cessation, inpatient consultation per RT, NR if desired. # DVT prophylaxis: Low risk. Charges/Coding Visit Charges Inpatient E&M: 39954 Subs Hosp L2
[2022-08-08 09:07] VITALS: BP 134/66; PULSE 68; RESP 18; TEMP 36.7; O2SAT 100
[2022-08-08] MEDS: Ensure Plus High Protein 120 ML LIQUID PO ×2 (09:13→20:42)
--- NOTE | 2022-08-08 10:28 | ADDICTION ---
Addendum entered by Massiel Delong 08/08/22 10:37: pt's appointment at [facility] is for 08/10/22 at 1pm. Original Note: This remote mortgage underwriter met with PT to conduct ASAM, MSE, AUDIT, DUDIT assessments and to plan for d/c. PT A+Ox4 and participated actively. All assessments completed and placed in PT's chart. PT plans to f/u with [facility] for MAT and Intensive Outpatient treatment services. PT did not indicate a need for transportation post d/c from [facility].
[2022-08-08] MEDS: cloNIDine HCl 0.1 MG Tablet PO ×2 (11:12→20:41)
[2022-08-08] MEDS: Gabapentin 300 MG Capsule PO ×2 (11:12→20:41)
[2022-08-08] MEDS: Dicyclomine 10 MG Capsule 20 MG PO ×2 (13:55→20:41)
[2022-08-08 15:52] VITALS: BP 150/79; PULSE 78; RESP 18; TEMP 36.8; O2SAT 98
[2022-08-08] MEDS: Nicotine Polacrilex 2 MG GUM PO ×2 (16:59→20:43)
[2022-08-08 20:35] VITALS: BP 141/84; PULSE 74; RESP 18; TEMP 36.6; O2SAT 100
[2022-08-08] MEDS: traZODone 100 MG Tablet PO (20:41)
[2022-08-09] MEDS: Buprenorphine HCl 2 MG TAB.SUBL SL ×2 (01:16→08:47)
[2022-08-09 02:40] VITALS: BP 126/79; PULSE 71; RESP 18; TEMP 36.9; O2SAT 97
[2022-08-09 07:55] VITALS: O2SAT 98
[2022-08-09 07:56] VITALS: BP 144/66; PULSE 72; RESP 16; TEMP 37.1; O2SAT 99
[2022-08-09] MEDS: Ensure Plus High Protein 120 ML LIQUID PO (08:48)
--- NOTE | 2022-08-09 10:49 | PN.HOSP_ITS ---
Subjective Subjective DOS: 08/09/2022 CC: Generalized aches Reports continued feeling achy and abdominal discomfort, no diarrhea, no chest pain or shortness of breath. Is continued on the Subutex taper. We will follow-up with outpatient resources on discharge, will DC after taper and she is tomorrow Objective Data Objective Data Vital Signs: Vital Signs Temp Pulse Resp BP Pulse Ox O2 Del Method 98.7 F 72 16 144/66 H 99 Room Air 08/09/22 07:56 08/09/22 07:56 08/09/22 07:56 08/09/22 07:56 08/09/22 07:56 08/09/22 07:56 Oxygen Delivery Method Room Air Weight: 97 kg Body Mass Index (BMI) 30.7 Intake & Output: Intake and Output for Last 24 Hours 08/07/22 08/08/22 08/09/22 23:59 23:59 23:59 Intake Total 600 / 1400 1600 / 2100 500 / 500 Balance 600 / 1400 1600 / 2100 500 / 500 Lab / Micro Data Result Diagrams: 08/07/22 05:13 08/07/22 05:13 Physical Exam Const alert Constitutional Narrative: Oriented, appears slightly diaphoretic HEENT normocephalic and head/scalp atraumatic Eyes Eyes Narrative: EOM grossly intact, anicteric Neck supple Resp normal respiratory effort and clear to auscultation bilaterally Cardio regular rate and regular rhythm GI soft to palpation, non-tender and non-distended Extremity Extremity Narrative: No edema appreciated Neuro moves all extremities Neuro Narrative: No overt focal deficits appreciated Psych Psych Narrative: Cooperative Assessment & Plan Assessment/Plan (1) Polysubstance abuse: PLAN: Plan The patient is a 42 y/o M w/ PMHx: Opiate Abuse including IV Heroin as well as fentanyl eventually transitioned to intranasal methods secondary to lack of decent vasculature, Hx Methamphetamine use, Tobacco use, Anxiety and Depression, most recently admitted 01/25/22 for opiate withdrawal treatment leaving AMA at that time but notes he was clean for a couple months who now re-presents to the [facility] ED on 08/07/22 with history of onset acute opiate withdrawal. #Acute opiate withdrawal -Continue Subutex taper-last dose should be tomorrow morning, will DC at that time with outpatient addiction services - As needed Tylenol, ibuprofen, bowel regimen, gabapentin, Bentyl, Vistaril, methocarbamol, clonidine - As needed trazodone nightly - As needed antiemetics ? UDS on admission positive for amphetamines and MDMA, prior to admission he reported using fentanyl and heroin. Does have history of IVDA however could no longer find vasculature and transition to intranasal route ? Hepatitis panel and HIV negative for acute process #Elevated BP without hypertensive diagnosis Likely secondary to opioid withdrawal, continue Subutex taper Has hydralazine as needed Would benefit from following with a primary care physician upon discharge #Polysubstance Abuse, IVDA Hx ?UDS positive for MDMA and amphetamines EtOH negative Hepatitis and HIV panel negative. #Anxiety and depression Patient's not on any chronic regimen per current list, likely contributes to substance abuse, encourage counseling and treatment as needed with 180. # tobacco Abuse: Encouraged cessation, inpatient consultation per RT, NR if desired. # DVT prophylaxis: Low risk. Charges/Coding Visit Charges Inpatient E&M: 92951 Subs Hosp L2
--- NOTE | 2022-08-09 15:35 | PCM.DC.SUM ---
Providers Date of Admission: 08/07/22 Primary Care Physician: Michelle Primary Care Phys Reason For Visit: ACUTE OPIATE WITHDRAWAL Diagnosis Discharge Diagnosis (1) Polysubstance abuse: Status: Acute Code(s): F19.10 - Other psychoactive substance abuse, uncomplicated Plan #Acute opiate withdrawal #Elevated BP without hypertensive diagnosis #Polysubstance Abuse, IVDA Hx #Anxiety and depression # tobacco Abuse: Encouraged cessation, inpatient consultation per RT, NR if desired. Medications at Discharge Home Medications NK 08/07/22 Hospital Course Summary of Care Provided Hospital Course: Mr. Kendall is a 42-year-old male with a past medical history of opiate abuse including IV heroin as well as fentanyl who transition to intranasal route who presented 08/07/2022 requesting opioid detox. He had recently been admitted 01/25-2021 but left AMA at that time was clean for several months but represented. He underwent Subutex taper with one day left but left AMA prior to being able to complete this and did not wait to speak with physician prior to leaving. PT LEFT AMA 08/09/22 Weight / BMI Weight Weight: 97 kg Body Mass Index (BMI) 30.7 ABG / Lab / Microbiology Data Result Diagrams: 08/07/22 05:13 08/07/22 05:13 Meaningful Use Info Meaningful Use Diagnoses (Choose all that apply): None applicable Discharge Plan Admission Admit Date/Time: 08/07/22 05:31 Primary Reason for Your Visit: Opioid withdrawal Attending Provider: Erin Louis Primary Care Provider: Care Physician,No Primary Consulting Providers: Rose Ordonez Instructions Patient Instructions: Addiction: Getting Help, Addiction: Your Treatment Options Additional Instructions / Restrictions: ? It is recommended that you establish with a primary care physician upon discharge, if desired you can be provided with a list of outpatient providers -Please call your primary care provider's office upon discharge to schedule a hospital follow up within 1 week. -For any concerning signs or symptoms please call 911 or proceed to the nearest emergency department Discharge Orders/Prescriptions Prescriptions: No Action NK Referrals / Follow Up: Care Physician,No Primary [Primary Care Provider] - Disposition Disposition (needs filled in before D/C Order can be placed): Against Medical Advice
== END 2022-08-09 12:25 | disposition left against medical advice (07) | DRG 770 ==
LOC: ED 06:00 → MS3 06:04
PROVIDERS: Admitting Provider Family Medicine; Emergency Provider Emergency Medicine; Visit Provider Internal Medicine
DX: F11.23 Opioid dependence with withdrawal (principal); F17.210 Nicotine dependence, cigarettes, uncomplicated; F19.10 Other psychoactive substance abuse, uncomplicated; R03.0 Elevated blood-pressure reading, without diagnosis of hypertension
CPT/HCPCS: 36415; 80053; 80307; 82077; 85025; 86703; 86706; 86803; 87340; 97802; 99284; 99406

== ENCOUNTER 2023-04-10 17:19 | Observation (INO) | payer MEDICAID, SELFPAY ==
[2023-04-10 17:20] VITALS: BP 121/87; PULSE 93; RESP 18; TEMP 35.7; O2SAT 97; BMI 32.3
--- NOTE | 2023-04-10 17:40 | EX.ED.SAOD ---
HPI History of Present Illness Chief Complaint: Substance Abuse Informant: patient Narrative Narrative: Patient presents stating that he needs admitted for opioid detox. He started seeing [facility] detox center here in [place] 1 week ago. He was given a prescription for Suboxone. He had enough medication to last him through 8 PM last evening. He apparently failed a urine drug screen and did admit to using fentanyl 2 days ago. He snorted it. He states apparently had meth mixed with it because he tested positive for both. He states he was told by staff at [facility] that he must come to the hospital and be admitted for medical detox or else they will no longer write him a prescription for Suboxone. He states he is starting to feel anxious and jittery. [facility] Medical History Anxiety Depression Methamphetamine use Opioid dependence with current use Polysubstance abuse Smoker Substance abuse Tobacco abuse Home Medications NK 08/07/22 [History Last Taken Unknown] Allergy/AdvReac Type Severity Reaction Status Date / Time No Known Allergies Allergy Verified 01/25/22 13:44 Family History Father Opiate abuse, continuous Heart disease Hypertension Mother Heart disease Hypertension Brother Opiate abuse, continuous Surgical History History of dental surgery Social History household members: other details: Lives with his mother and his brother. Smoking Status: Current every day smoker tobacco type: cigarettes alcohol intake: never substance use type: heroin, amphetamines, methamphetamine and other details: Hx prior IVDA->transitioned to snorting. ROS ROS ED Constitutional Constitutional ED: Denies chills or fever(s) Eyes Eyes: Denies change in vision or discharge from eye(s) ENT ENT ED: Denies discharge from eye(s) or sore throat Cardiovascular Cardiovascular: Denies chest pain or palpitations Respiratory/Chest Respiratory/Chest: Denies cough or dyspnea Gastrointestinal Gastrointestinal: Denies abdominal pain, nausea or vomiting Genitourinary Genitourinary ED: Denies difficulty urinating or dysuria Musculoskeletal Musculoskeletal: Denies back pain or extremity pain Integumentary Denies Abrasions or rash Neurologic Neurologic: Denies headache(s) or weakness Psychiatric Psychiatric: Reports anxiety; Denies depression Allergic/Immunologic Allergic/Immunologic ED: Denies lip swelling or urticaria EXAM Physical Exam Const Vital Signs: 04/10/23 17:20 Temperature 96.3 F L Temperature Source Temporal Pulse Rate 93 Respiratory Rate 18 Blood Pressure 121/87 H Blood Pressure Mean 98 Pulse Ox 97 Oxygen Delivery Method Room Air Positive well nourished and well developed General Appearance ED: well developed HEENT Reports moist mucous membranes Eyes EOMs intact bilaterally Chest Wall inspection of chest normal and palpation of chest normal Resp normal respiratory effort and clear to auscultation bilaterally Cardio regular rate and regular rhythm GI soft to palpation and non-tender Neuro oriented x3 and no sensory deficits noted Sensorium / Orientation: alert Psych mental status grossly normal MDM MDM MDM Narrative Medical decision making narrative: I spoke with Dr. Tolbert. He will [facility]. Discharge Plan Triage Chief Complaint: Substance Abuse ED Provider: Marilee Warren Dx/Rx/DC Orders Clinical Impression: Opiate abuse, episodic, Desire for detoxification Prescriptions: No Action NK Primary Care Provider: Care Physician,No Primary Referrals: Care Physician,No Primary [Primary Care Provider] - Disposition Disposition: Acute Care Hospital [facility]
--- NOTE | 2023-04-10 17:51 | NURSING ---
MED SURG KOTSJRS OPIATE DETOX
[2023-04-10 17:55] VITALS: BP 121/87; PULSE 93; RESP 18; TEMP 35.7; O2SAT 97
[2023-04-10 18:24] LABS: Absolute Lymphocyte Count 3.11 X10^3/uL (0.83-4.51); Absolute Neutrophil Count 8.2 X10^3/uL (2.0-7.7); Basophil# 0.08 X10^3/uL; Basophil% 0.6 % (0-1); Eosinophil# 0.31 X10^3/uL; Eosinophils% 2.4 % (0-5); Hematocrit 45.9 % (40-54); Hemoglobin 15.1 g/dL (13.0-16.5); Lymphocyte # 3.11 X10^3/ul (0.83-4.51); Lymphocyte % 23.9 % (19-41); Mean Corp Hgb Conc 32.9 g/dL (32-36); Mean Corpuscular Hgb 29.4 pg (27.0-32.0); Mean Corpuscular Volume 89.3 fL (80-94); Mean Platelet Vol. 10.4 fl (6.2-12.0); Monocyte# 1.24 X10^3/uL; Monocyte% 9.5 % (0-10); NRBC Flagged by Analyzer 0 % (0-5); Neutrophil % 63.1 % (47-70); Platelet Count 351 K/mm3 (150-450); RBC Distribution Width CV 13.3 % (11.6-14.6); RBC Distribution Width SD 43.4 fl (35.1-43.9); Red Blood Count 5.14 M/mm3 (4.6-6.2)
[2023-04-10 18:29] VITALS: BMI 31.2
[2023-04-10 18:36] VITALS: BP 148/78; PULSE 85; RESP 16; TEMP 36.6; O2SAT 96
[2023-04-10 18:43] LABS: ALB/GLOB Ratio 1.1 RATIO (0.9-2.4); AST(SGOT) 10 U/L (15-37); Alanine Aminotransfer ALT/SGPT 22 U/L (16-61); Albumin, Serum 4.3 g/dL (3.2-5.0); Alkaline Phosphatase 109 U/L (45-117); Anion Gap 5 (5-15); BUN 19 mg/dL (7-18); BUN/Creat Ratio 14.8 RATIO (10-20); Calcium,Total 9.3 mg/dL (8.5-10.1); Chloride 100 mmol/L (98-107); Creatinine, Serum 1.28 mg/dL (0.70-1.30); EST Glomerular Filtration Rate 66 mL/min (>60); Est Glom Filt Rate - Afr Amer 80 mL/min (>60); Estimated Creatinine Clearance 78.42 ml/min; Glucose 92 mg/dL (74-106); Potassium 3.9 mmol/L (3.5-5.1); Protein, Total 8.3 g/dL (6.4-8.2); Sodium Level 135 mmol/L (136-145)
[2023-04-10] MEDS: Buprenorphine HCl 2 MG TAB.SUBL SL (18:43)
[2023-04-10 18:46] LABS: Amphetamine Urine VISTA POSITIVE (<1000 ng/mL); Barbiturate Urine VISTA NEGATIVE (< 200 ng/mL); Benzodiazepine Urine VISTA NEGATIVE (< 200 ng/mL); Cocaine Urine VISTA NEGATIVE (< 300 ng/mL); Ecstacy Urine VISTA POSITIVE (< 500 ng/mL); Methadone Urine VISTA NEGATIVE (< 300 ng/mL); PCP Urine VISTA NEGATIVE (< 25 ng/mL); THC Urine VISTA NEGATIVE (< 50 ng/mL); Vista UDS pH Range 5
--- NOTE | 2023-04-10 19:10 | PCM.HP.STD ---
HPI - General General Date of Admission: 04/10/23 HPI Narrative IMELDA TOM, is a 43 M who presents to the hospital for opiate detox. [facility] and was on Suboxone through them however he admitted to using fentanyl and so they would not prescribe him Suboxone unless he completed detox program. He presented to the hospital with active withdrawal symptoms likely from the Suboxone as his last dose was the night before where is his fentanyl dose was 2 or 3 days prior. He does have tremors and is diaphoretic. [facility] Medical History Anxiety Depression Methamphetamine use Opioid dependence with current use Polysubstance abuse Smoker Substance abuse Tobacco abuse Home Medications buprenorphine 8 mg-naloxone 2 mg sublingual film 8 film sublingual BID detox 04/10/23 [History Last Taken 04/09/23 20:00] Allergy/AdvReac Type Severity Reaction Status Date / Time No Known Allergies Allergy Verified 01/25/22 13:44 Family History Father Opiate abuse, continuous Heart disease Hypertension Mother Heart disease Hypertension Brother Opiate abuse, continuous Surgical History History of dental surgery Social History household members: other details: Lives with his mother and his brother. Smoking Status: Current every day smoker tobacco type: cigarettes alcohol intake: never substance use type: heroin, amphetamines, methamphetamine and other details: Hx prior IVDA->transitioned to snorting. ROS Constitutional Constitutional: Denies chills, fatigue, fever(s) or malaise Eyes Eyes: Denies blurry vision ENT HEENT: Denies headache(s) or nasal discharge Cardiovascular Cardiovascular: Denies chest pain, dyspnea on exertion or syncope Respiratory/Chest Respiratory/Chest: Denies cough, shortness of breath at rest or shortness of breath with exertion Gastrointestinal Gastrointestinal: Denies constipation, diarrhea, nausea or vomiting Genitourinary Genitourinary: Denies dysuria Neurologic Neurologic: Reports tremor(s); Denies focal weakness or numbness Psychiatric Psychiatric: Reports anxiety; Denies depression Vital Signs Vital Signs Vital Signs: 04/10/23 17:20 04/10/23 17:55 04/10/23 18:34 Temperature 96.3 F L 96.3 F L Temperature Source Temporal Temporal Pulse Rate 93 93 Respiratory Rate 18 18 Respiratory Effort Normal Respiratory Depth Normal Respiratory Pattern Normal Blood Pressure 121/87 H 121/87 H Blood Pressure Mean 98 98 Blood Pressure Source Blood Pressure Position Blood Pressure Location Pulse Ox 97 97 Oxygen Delivery Method Room Air Room Air Room Air 04/10/23 18:36 Temperature 98 F Temperature Source Oral Pulse Rate 85 Respiratory Rate 16 Respiratory Effort Respiratory Depth Respiratory Pattern Blood Pressure 148/78 H Blood Pressure Mean 101 Blood Pressure Source Monitor Blood Pressure Position Semi-Fowlers Blood Pressure Location Right Arm Pulse Ox 96 Oxygen Delivery Method Room Air Weight Weight: 218 lb Body Mass Index (BMI) 31.2 Physical Exam Narrative General: Alert, Oriented x3, Cooperative, diaphoretic, fidgety HEENT: Atraumatic, PERRLA, EOMI, Normocephalic Oral: Moist Mucosa Neck: Supple, No JVD Lungs: Clear to auscultation, Normal air movement, No rhonchi, No wheeze, No rales Cardiovascular: Regular rate, Regular Rhythm, Normal S1, Normal S2, No murmurs Abdomen: Soft, Non Tender, Non-Distended, No Hepato-splenomegaly Extremities: No edema, Capillary Refill Less than 3 Seconds Skin: No rashes, No breakdown Musculoskeletal: No Tenderness to Palpation of Joints or Extremities Neurological: Cranial nerves II-XII grossly intact, Motor Exam 5/5 strength throughout, Sensory exam intact to light touch and pain Psych/Mental Status: Flat affect, anxious Results Lab / Micro Data Result Diagrams: 04/10/23 18:10 04/10/23 18:10 Labs: Laboratory Results - last 24 hr 04/10/23 18:10: WBC 13.0 H, RBC 5.14, Hgb 15.1, Hct 45.9, MCV 89.3, MCH 29.4, MCHC 32.9, RDW Std Deviation 43.4, RDW Coeff of Roselyn 13.3, Plt Count 351, MPV 10.4, Immature Gran % (Auto) 0.500, Neut % (Auto) 63.1, Lymph % (Auto) 23.9, [place] % (Auto) 9.5, Eos % (Auto) 2.4, Baso % (Auto) 0.6, Absolute Neuts (auto) 8.2 H, Absolute Lymphs (auto) 3.11, Nucleated RBC % 0 04/10/23 18:10: Sodium 135 L, Potassium 3.9, Chloride 100, Carbon Dioxide 30.0, Anion Gap 5, BUN 19 H, Creatinine 1.28, Estim Creat Clear Calc 78.42, Est GFR (MDRD) Af Amer 80, Est GFR (MDRD) Non-Af 66, BUN/Creatinine Ratio 14.8, Glucose 92, Calcium 9.3, Total Bilirubin 1.10 H, AST 10 L, ALT 22, Alkaline Phosphatase 109, Total Protein 8.3 H, Albumin 4.3, Globulin 4.0, Albumin/Globulin Ratio 1.1 04/10/23 18:12: Urine Opiates Screen NEGATIVE, Urine Methadone Screen NEGATIVE, Ur Barbiturates Screen NEGATIVE, Ur Phencyclidine Scrn NEGATIVE, Ur Amphetamines Screen POSITIVE H, MDMA (Ecstasy) Screen POSITIVE H, U Benzodiazepines Scrn NEGATIVE, Urine Cocaine Screen NEGATIVE, U Cannabinoids Screen NEGATIVE, Ur Drug Screen Comment Assessment & Plan Assessment/Plan (1) Opiate abuse, episodic: PLAN: Plan 1. Opiate abuse here for detox/tobacco abuse ? Urine drug screen positive for MDMA and amphetamines ? Continue with the opiate withdrawal protocol ? We will consult 180 to assist with outpatient transition ? We will provide a nicotine patch and counseled on cessation ? He snorts fentanyl he does not inject anymore and he is HIV and hepatitis C negative, his hepatitis B surface antibody is positive but his antigen is negative DVT: Ambulation 76 minutes was spent on direct patient care as well as chart review and collaboration with colleagues Charges/Coding Visit Charges Inpatient E&M: 18554 Init Hosp L3
[2023-04-10 19:14] LABS: Alcohol, Blood (Medical)-Serum < 3.0 mg/dL
[2023-04-10] MEDS: traZODone 100 MG Tablet PO (20:27)
[2023-04-10] MEDS: hydrOXYzine PAM 25 MG Capsule 50 MG PO (20:27)
[2023-04-11 00:04] VITALS: BP 110/65; PULSE 77; RESP 16; TEMP 36.2; O2SAT 99
[2023-04-11 03:15] VITALS: BP 109/60; PULSE 68; RESP 16; TEMP 36.6; O2SAT 97
[2023-04-11] MEDS: Buprenorphine HCl 2 MG TAB.SUBL SL ×3 (03:17→19:02)
[2023-04-11 09:00] VITALS: BP 111/61; PULSE 83; RESP 16; TEMP 36.7; O2SAT 98
--- NOTE | 2023-04-11 10:13 | PN.HOSP_ITS ---
Subjective Subjective Sting comfortably, Cina score of 2 this morning Objective Data Objective Data Vital Signs: Vital Signs Temp Pulse Resp BP Pulse Ox O2 Del Method 98.0 F 83 16 111/61 98 Room Air 04/11/23 09:00 04/11/23 09:00 04/11/23 09:00 04/11/23 09:00 04/11/23 09:00 04/11/23 09:00 Oxygen Delivery Method Room Air Weight: 218 lb Body Mass Index (BMI) 31.2 Lab / Micro Data Result Diagrams: 04/10/23 18:10 04/10/23 18:10 Labs: Laboratory Results - last 24 hr 04/10/23 18:10: WBC 13.0 H, RBC 5.14, Hgb 15.1, Hct 45.9, MCV 89.3, MCH 29.4, MCHC 32.9, RDW Std Deviation 43.4, RDW Coeff of Roselyn 13.3, Plt Count 351, MPV 10.4, Immature Gran % (Auto) 0.500, Neut % (Auto) 63.1, Lymph % (Auto) 23.9, [place] % (Auto) 9.5, Eos % (Auto) 2.4, Baso % (Auto) 0.6, Absolute Neuts (auto) 8.2 H, Absolute Lymphs (auto) 3.11, Nucleated RBC % 0 04/10/23 18:10: Sodium 135 L, Potassium 3.9, Chloride 100, Carbon Dioxide 30.0, Anion Gap 5, BUN 19 H, Creatinine 1.28, Estim Creat Clear Calc 78.42, Est GFR (MDRD) Af Amer 80, Est GFR (MDRD) Non-Af 66, BUN/Creatinine Ratio 14.8, Glucose 92, Calcium 9.3, Total Bilirubin 1.10 H, AST 10 L, ALT 22, Alkaline Phosphatase 109, Total Protein 8.3 H, Albumin 4.3, Globulin 4.0, Albumin/Globulin Ratio 1.1 04/10/23 18:10: Ethyl Alcohol < 3.0 04/10/23 18:12: Urine Opiates Screen NEGATIVE, Urine Methadone Screen NEGATIVE, Ur Barbiturates Screen NEGATIVE, Ur Phencyclidine Scrn NEGATIVE, Ur Amphetamines Screen POSITIVE H, MDMA (Ecstasy) Screen POSITIVE H, U Benzodiazepines Scrn NEGATIVE, Urine Cocaine Screen NEGATIVE, U Cannabinoids Screen NEGATIVE, Ur Drug Screen Comment Physical Exam Narrative General: Alert, Oriented x3, Cooperative, no acute distress HEENT: Atraumatic, PERRLA, EOMI, Normocephalic Oral: Moist Mucosa Neck: Supple, No JVD Lungs: Clear to auscultation, Normal air movement, No rhonchi, No wheeze, No rales Cardiovascular: Regular rate, Regular Rhythm, Normal S1, Normal S2, No murmurs Abdomen: Soft, Non Tender, Non-Distended, No Hepato-splenomegaly Extremities: No edema, Capillary Refill Less than 3 Seconds Skin: No rashes, No breakdown Musculoskeletal: No Tenderness to Palpation of Joints or Extremities Neurological: Cranial nerves II-XII grossly intact, Motor Exam 5/5 strength throughout, Sensory exam intact to light touch and pain Psych/Mental Status: Flat affect, anxious Assessment & Plan Assessment/Plan (1) Opiate abuse, episodic: PLAN: Plan 1. Opiate abuse here for detox/tobacco abuse ? Urine drug screen positive for MDMA and amphetamines ? Continue with the opiate withdrawal protocol ? We will consult 180 to assist with outpatient transition ? We will provide a nicotine patch and counseled on cessation ? He snorts fentanyl he does not inject anymore and he is HIV and hepatitis C negative, his hepatitis B surface antibody is positive but his antigen is negative DVT: Ambulation Charges/Coding Visit Charges Inpatient E&M: 25393 Subs Hosp L2
--- NOTE | 2023-04-11 12:05 | ADDICTION ---
This brief writer met with PT to conduct ASAM, MSE, AUDIT, DUDIT assessments and to plan for d/c. PT A+Ox4 and participated actively. All assessments completed and placed in PT's chart. PT plans to f/u with [facility] for follow-up in outpatient treatment services. Pt did not identify a need for ttransportation upn DC..
[2023-04-11] MEDS: hydrOXYzine PAM 25 MG Capsule 50 MG PO ×2 (15:16→21:51)
[2023-04-11] MEDS: Gabapentin 300 MG Capsule PO (15:16)
[2023-04-11] MEDS: Methocarbamol 750 MG Tablet 1500 MG PO (15:16)
[2023-04-11 15:29] VITALS: BP 122/84; PULSE 70; RESP 18; TEMP 37.2; O2SAT 98
[2023-04-11 21:30] VITALS: BP 121/66; PULSE 65; RESP 16; TEMP 36.6; O2SAT 98
[2023-04-11] MEDS: traZODone 100 MG Tablet PO (21:51)
[2023-04-12 03:30] VITALS: BP 125/75; PULSE 62; RESP 16; TEMP 36.6; O2SAT 97
[2023-04-12] MEDS: Buprenorphine HCl 2 MG TAB.SUBL SL ×3 (03:31→19:06)
--- NOTE | 2023-04-12 08:57 | PN.HOSP_ITS ---
Subjective Subjective Doing well, no issues overnight. Resting comfortably. Cina score of 0 Objective Data Objective Data Vital Signs: Vital Signs Temp Pulse Resp BP Pulse Ox O2 Del Method 98 F 62 16 125/75 H 97 Room Air 04/12/23 03:30 04/12/23 03:30 04/12/23 03:30 04/12/23 03:30 04/12/23 03:30 04/12/23 03:30 Oxygen Delivery Method Room Air Weight: 218 lb Body Mass Index (BMI) 31.2 Intake & Output: Intake and Output for Last 24 Hours 04/11/23 04/12/23 04/13/23 03:59 03:59 03:59 Intake Total 1650 / 1650 Balance 1650 / 1650 Lab / Micro Data Result Diagrams: 04/10/23 18:10 04/10/23 18:10 Physical Exam Narrative General: Alert, Oriented x3, Cooperative, no acute distress HEENT: Atraumatic, PERRLA, EOMI, Normocephalic Oral: Moist Mucosa Neck: Supple, No JVD Lungs: Clear to auscultation, Normal air movement, No rhonchi, No wheeze, No rales Cardiovascular: Regular rate, Regular Rhythm, Normal S1, Normal S2, No murmurs Abdomen: Soft, Non Tender, Non-Distended, No Hepato-splenomegaly Extremities: No edema, Capillary Refill Less than 3 Seconds Skin: No rashes, No breakdown Musculoskeletal: No Tenderness to Palpation of Joints or Extremities Neurological: Cranial nerves II-XII grossly intact, Motor Exam 5/5 strength thr oughout, Sensory exam intact to light touch and pain Psych/Mental Status: Flat affect Assessment & Plan Assessment/Plan (1) Opiate abuse, episodic: PLAN: Plan 1. Opiate abuse here for detox/tobacco abuse ? Urine drug screen positive for MDMA and amphetamines ? Continue with the opiate withdrawal protocol ? We will consult 180 to assist with outpatient transition ? We will provide a nicotine patch and counseled on cessation ? He snorts fentanyl he does not inject anymore and he is HIV and hepatitis C negative, his hepatitis B surface antibody is positive but his antigen is negative DVT: Ambulation Charges/Coding Visit Charges Inpatient E&M: 11091 Subs Hosp L2
[2023-04-12 10:27] VITALS: BP 131/67; PULSE 68; RESP 18; TEMP 36.9; O2SAT 98
[2023-04-12] MEDS: Gabapentin 300 MG Capsule PO (17:51)
[2023-04-12] MEDS: hydrOXYzine PAM 25 MG Capsule 50 MG PO (17:51)
[2023-04-12] MEDS: Methocarbamol 750 MG Tablet 1500 MG PO (17:51)
[2023-04-12 17:53] VITALS: BP 137/79; PULSE 89; RESP 18; TEMP 36.6; O2SAT 98
[2023-04-12 21:56] VITALS: BP 136/68; PULSE 80; RESP 18; TEMP 36.6; O2SAT 96
[2023-04-12] MEDS: Ondansetron 8 MG Tablet PO (22:02)
[2023-04-12] MEDS: cloNIDine HCl 0.1 MG Tablet PO (22:02)
[2023-04-12] MEDS: traZODone 100 MG Tablet PO (22:02)
[2023-04-13 04:30] VITALS: BP 102/62; PULSE 64; RESP 18; TEMP 36.4; O2SAT 98
[2023-04-13] MEDS: Buprenorphine HCl 2 MG TAB.SUBL SL (05:53)
[2023-04-13] MEDS: hydrOXYzine PAM 25 MG Capsule 50 MG PO (05:56)
[2023-04-13] MEDS: Methocarbamol 750 MG Tablet 1500 MG PO (05:56)
[2023-04-13 10:30] VITALS: BP 124/71; PULSE 69; RESP 18; TEMP 37.1; O2SAT 98
[2023-04-13] MEDS: Gabapentin 300 MG Capsule PO (10:45)
[2023-04-13] MEDS: cloNIDine HCl 0.1 MG Tablet PO (10:45)
--- NOTE | 2023-04-13 11:00 | DCINST_ITS ---
Discharge Instructions Diet Discharge Diet: No restrictions Activity Discharge Activity: Return to Normal Activity Dressing / Incision Call your doctor if you observe: Fever of 101 or Higher, Shortness of breath, Dizziness, Fainting spells, Swelling in the ankles, Chest pain and Increased palpitations (irregular heartbeat) Follow Up Care Test Results: Test results from this visit will be discussed in further detail at your follow- up appointment, if applicable. Discharge Plan Admission Admit Date/Time: 04/10/23 18:29 Attending Provider: Raheem Tolbert Primary Care Provider: Michelle Staton Primary Discharge Orders/Prescriptions Prescriptions: Continued buprenorphine-naloxone 8-2 mg film 8 film sublingual BID Label Comments: Place 1 film under tongue twice a day Referrals / Follow Up: Care Physician,Michelle Primary [Primary Care Provider] - Disposition Disposition (needs filled in before D/C Order can be placed): Home, Self Care
--- NOTE | 2023-04-13 11:01 | PCM.DC.SUM ---
Providers Date of Admission: 04/10/23 Primary Care Physician: No Primary Care Phys Reason For Visit: OPIATE DETOX Diagnosis Discharge Diagnosis (1) Opiate abuse, episodic: Status: Acute Code(s): F11.10 - Opioid abuse, uncomplicated Plan 1. Opiate abuse here for detox/tobacco abuse ? Urine drug screen positive for MDMA and amphetamines ? Continue with the opiate withdrawal protocol ? We will consult 180 to assist with outpatient transition ? We will provide a nicotine patch and counseled on cessation ? He snorts fentanyl he does not inject anymore and he is HIV and hepatitis C negative, his hepatitis B surface antibody is positive but his antigen is negative DVT: Ambulation Medications at Discharge Home Medications buprenorphine 8 mg-naloxone 2 mg sublingual film 8 film sublingual BID detox 04/10/23 Hospital Course Operations None Procedures None Summary of Care Provided Minutes Spent on Discharge: 33 Hospital Course: Per HPI: IMELDA TOM, is a 43 M who presents to the hospital for opiate detox.? He sees [facility] in [facility] and was on Suboxone through them however he admitted to using fentanyl and so they would not prescribe him Suboxone unless he completed detox program.? He presented to the hospital with active withdrawal symptoms likely from the Suboxone as his last dose was the night before where is his fentanyl dose was 2 or 3 days prior.? He does have tremors and is diaphoretic. Hospital Course: 1. Opiate abuse and withdrawal here for detox/tobacco abuse?43-year-old male who was on Suboxone as an outpatient used fentanyl which was cut with MDMA and amphetamines. He went to the to get a refill on his Suboxone and they told him since he had used fentanyl that he would need to go through detox again prior to receiving prescriptions as an outpatient. He was admitted and completed a 3-day detox. He will be discharged today back to a new for outpatient management. I discussed with him the plan for discharge and he expressed understanding of this benefits going home and would like to go home today. Of note he is complaining of some shoulder pain, does feel like a rotator cuff strain so I do recommend physical therapy if this does not improve in several weeks with diligent therapy then would recommend outpatient imaging. This was specifically discussed with him. Physical Exam Narrative General: Alert, Oriented x3, Cooperative, no acute distress HEENT: Atraumatic, PERRLA, EOMI, Normocephalic Oral: Moist Mucosa Neck: Supple, No JVD Lungs: Clear to auscultation, Normal air movement, No rhonchi, No wheeze, No rales Cardiovascular: Regular rate, Regular Rhythm, Normal S1, Normal S2, No murmurs Abdomen: Soft, Non Tender, Non-Distended, No Hepato-splenomegaly Extremities: No edema, Capillary Refill Less than 3 Seconds Skin: No rashes, No breakdown Musculoskeletal: He does have okay passive range of motion of his left upper extremity however he does have shoulder pain with external rotation as well as the inverted can test and abduction. No significant pain with palpation Neurological: Cranial nerves II-XII grossly intact, Motor Exam 5/5 strength throughout, Sensory exam intact to light touch and pain Psych/Mental Status: Flat affect Weight / BMI Weight Weight: 218 lb Body Mass Index (BMI) 31.2 ABG / Lab / Microbiology Data Result Diagrams: 04/10/23 18:10 04/10/23 18:10 D/C Instructions Discharge Diet: No restrictions Call your doctor if you observe: Fever of 101 or Higher, Shortness of breath, Dizziness, Fainting spells, Swelling in the ankles, Chest pain and Increased palpitations (irregular heartbeat) Meaningful Use Info Meaningful Use Diagnoses (Choose all that apply): None applicable Discharge Plan Admission Admit Date/Time: 04/10/23 18:29 Attending Provider: Raheem Tolbert Primary Care Provider: Miriam Saavedra,Michelle Primary Discharge Orders/Prescriptions Prescriptions: Continued buprenorphine-naloxone 8-2 mg film 8 film sublingual BID Label Comments: Place 1 film under tongue twice a day Referrals / Follow Up: Care Physician,No Primary [Primary Care Provider] - Disposition Disposition (needs filled in before D/C Order can be placed): Home, Self Care Charges/Coding Visit Charges Inpatient E&M: 59782 Subs Hosp L2
--- NOTE | 2023-04-13 11:25 | PHA.DC.MR ---
Pharmacy Service has performed discharge medication reconciliation for this patient. No new medications issued at time of discharge review. Medications reviewed are from previously reported home medications. Home Medications buprenorphine 8 mg-naloxone 2 mg sublingual film 8 film sublingual BID detox 04/10/23 The patient's discharge medication list was reviewed for discrepancies and discrepancies were resolved.
== END 2023-04-13 11:45 | disposition home or self-care (01) | DRG 772 ==
LOC: ED 18:05 → MS3 18:21
PROVIDERS: Admitting Provider Family Medicine; Emergency Provider Emergency Medicine; Visit Provider Family Medicine
DX: F11.13 Opioid abuse with withdrawal (principal); F17.210 Nicotine dependence, cigarettes, uncomplicated; F15.90 Other stimulant use, unspecified, uncomplicated
CPT/HCPCS: 80053; 80307; 82077; 85025; 99221; 99283; 99406; G0378

== ENCOUNTER 2023-06-29 00:53 | Emergency (ER) | payer MEDICAID, SELFPAY ==
[2023-06-29 00:54] VITALS: BP 108/75; PULSE 136; RESP 18; TEMP 37.1; O2SAT 93; BMI 29.8
[2023-06-29 01:08] VITALS: BP 105/55; PULSE 123; RESP 16; O2SAT 92
[2023-06-29 01:10] VITALS: O2SAT 93
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
[2023-06-29 01:45] VITALS: BP 105/78; PULSE 122; RESP 13; O2SAT 93
[2023-06-29 02:00] VITALS: BP 121/74; PULSE 133; RESP 16; O2SAT 95
[2023-06-29 02:06] VITALS: PULSE 130; RESP 15; O2SAT 98
== END 2023-06-29 02:12 | disposition home or self-care (01) ==
PROVIDERS: Emergency Provider Emergency Medicine; Visit Provider Emergency Medicine
DX: F19.19 Other psychoactive substance abuse with unspecified psychoactive substance-induced disorder (principal); F17.210 Nicotine dependence, cigarettes, uncomplicated
CPT/HCPCS: 99285

== ENCOUNTER 2023-06-30 18:03 | Observation (INO) | payer MEDICAID, SELFPAY ==
[2023-06-30 18:04] VITALS: BP 156/82; PULSE 104; RESP 16; TEMP 36.1; O2SAT 99; BMI 29.5
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
[2023-06-30 19:56] LABS: Alcohol, Blood (Medical)-Serum < 3.0 mg/dL
[2023-06-30 20:00] LABS: Amphetamine Urine VISTA POSITIVE (<1000 ng/mL); Barbiturate Urine VISTA NEGATIVE (< 200 ng/mL); Benzodiazepine Urine VISTA NEGATIVE (< 200 ng/mL); Cocaine Urine VISTA NEGATIVE (< 300 ng/mL); Ecstacy Urine VISTA NEGATIVE (< 500 ng/mL); Methadone Urine VISTA NEGATIVE (< 300 ng/mL); PCP Urine VISTA NEGATIVE (< 25 ng/mL); THC Urine VISTA NEGATIVE (< 50 ng/mL); Vista UDS pH Range 6
[2023-06-30 20:04] LABS: AST(SGOT) 9 U/L (15-37); Alanine Aminotransfer ALT/SGPT 33 U/L (16-61); Albumin, Serum 3.5 g/dL (3.2-5.0); Alkaline Phosphatase 87 U/L (45-117); Anion Gap 6 (5-15); BUN 13 mg/dL (7-18); BUN/Creat Ratio 12.7 RATIO (10-20); Calcium,Total 8.8 mg/dL (8.5-10.1); Chloride 107 mmol/L (98-107); Creatinine, Serum 1.02 mg/dL (0.70-1.30); EST Glomerular Filtration Rate 85 mL/min (>60); Est Glom Filt Rate - Afr Amer 103 mL/min (>60); Estimated Creatinine Clearance 98.41 ml/min; Globulin 3.4 g/dL (2.2-4.2); Glucose 170 mg/dL (74-106); Potassium 3.4 mmol/L (3.5-5.1); Protein, Total 6.9 g/dL (6.4-8.2); Sodium Level 139 mmol/L (136-145)
[2023-06-30 20:11] LABS: Absolute Lymphocyte Count 2.77 X10^3/uL (0.83-4.51); Absolute Neutrophil Count 8.6 X10^3/uL (2.0-7.7); Basophil# 0.06 X10^3/uL; Basophil% 0.5 % (0-1); Eosinophil# 0.25 X10^3/uL; Hematocrit 41.4 % (40-54); Hemoglobin 13.2 g/dL (13.0-16.5); Lymphocyte # 2.77 X10^3/ul (0.83-4.51); Mean Corp Hgb Conc 31.9 g/dL (32-36); Mean Corpuscular Hgb 29.2 pg (27.0-32.0); Mean Corpuscular Volume 91.6 fL (80-94); Mean Platelet Vol. 11.3 fl (6.2-12.0); Monocyte% 7.1 % (0-10); NRBC Flagged by Analyzer 0 % (0-5); Neutrophil # 8.57 X10^3/uL (2.7-7.7); Neutrophil % 67.9 % (47-70); Platelet Count 233 K/mm3 (150-450); RBC Distribution Width CV 13.3 % (11.6-14.6); RBC Distribution Width SD 45.1 fl (35.1-43.9); Red Blood Count 4.52 M/mm3 (4.6-6.2); White Blood Count 12.6 K/mm3 (4.4-11.0)
--- NOTE | 2023-06-30 20:35 | PCM.HP.STD ---
HPI - General General Date of Admission: 06/30/23 Date of Service: 06/30/23 Chief Complaint: Opiate abuse, withdrawal. HPI Narrative The patient is a 43 y/o M w/ PMHx: Anxiety and Depression, Tobacco use, Polysubstance abuse (Prior IVDA, now snorts opiates, fentanyl, methamphetamines) who presents to the [facility] ED on 06/30/23 with history of recently being in [facility] for the last several weeks where he went through withdrawal but also reports he was able to use while he was in [facility] previously heavy IV drug user however now he has to snort as he does not have appropriate access leaving [facility] approximately 3 days prior to ED presentation reportedly taking a hit from some his vape pen that was actually opiate based and from description may have overdosed with ED visit 06/29/23 now re-presents requesting detox from fentanyl. In the ED patient with Cina score 9 with muscle cramps, goosebumps, mild rhinorrhea, restlessness, agitation, tearing eyes, mild diaphoresis and yawning. Last usage was ~ 4 am on day of presentation. He is eager for clean status as he notes he spoke with his ex- and she encouraged him to seek treatment again for their children. Patient has presented 03/2023 for treatment with at that time HIV and hepatitis C negative, hepatitis B surface antibody positive but antigen negative. Work-up in the ED included T97, heart rate 104, BP 156/82, respiratory rate 16, 99% on room air, CMP with potassium 3.4, glucose 170 otherwise not marked appearing, UDS with positive amphetamine, ethyl alcohol less than 3, CBC with WBC 12.6, hemoglobin 13.2, platelet 233 with left shift. [facility] Medical History (Updated 06/30/23 @ 20:[address] Rose Ordonez MD) Anxiety and depression History of intravenous drug abuse Methamphetamine use Opiate abuse, episodic Polysubstance abuse Tobacco abuse Home Medications NK 06/30/23 [History Last Taken Unknown] Allergy/AdvReac Type Severity Reaction Status Date / Time Fish Containing Products Allergy Intermediate Swelling Verified 06/30/23 18:04 Family History Father Opiate abuse, continuous Heart disease Hypertension Mother Heart disease Hypertension Brother Opiate abuse, continuous Surgical History History of dental surgery Social History household members: other details: Lives with his mother and his brother. Smoking Status: Current every day smoker tobacco type: cigarettes alcohol intake: never substance use type: heroin, amphetamines, methamphetamine and other details: Hx prior IVDA->transitioned to snorting. ROS ROS Narrative Admission Review of Systems: CONSTITUTIONAL: No weight loss, fever, chills, + weakness or fatigue. HEENT: + Mild rhinorrhea, tearing eyes, frequent yawning. Eyes: No visual loss, blurred vision, double vision or yellow sclerae. Ears, Nose, Throat: No hearing loss, sneezing or sore throat. SKIN: + Goosebumps. No rash or itching, lesions, wounds. CARDIOVASCULAR: No chest pain, chest pressure or chest discomfort, palpitations, edema, orthopnea, syncopal events. RESPIRATORY: No shortness of breath, cough or sputum, wheezing, hemoptysis. GASTROINTESTINAL: No anorexia, abdominal cramping, nausea, vomiting, diarrhea, melena, BRBPR. GENITOURINARY: No dysuria, frequency, urgency or retention. NEUROLOGICAL: + Restlessness, mild agitation. No headache, dizziness, syncope, paralysis, ataxia, numbness or tingling in the extremities, focal weakness, change in bowel or bladder control, seizure. MUSCULOSKELETAL: + muscle, back pain, joint pain or stiffness. HEMATOLOGIC: No anemia, bleeding or bruising. LYMPHATICS: No enlarged nodes. No history of splenectomy. PSYCHIATRIC: + history of depression or anxiety. ENDOCRINOLOGIC: + reports of sweating, cold or heat intolerance. No polyuria or polydipsia. ALLERGIES: No history of asthma, hives, eczema or rhinitis. Vital Signs Vital Signs Vital Signs: 06/30/23 18:04 Temperature 97 F L Temperature Source Temporal Pulse Rate 104 H Respiratory Rate 16 Blood Pressure 156/82 H Blood Pressure Mean 106 Pulse Ox 99 Oxygen Delivery Method Room Air Weight Weight: 206 lb Body Mass Index (BMI) 29.5 Physical Exam Narrative Physical Examination: General: Awake, alert, oriented x 3 and cooperative, seated upright in the ED bed, restless, worsening withdrawal sxs. Skin: Mildly flushed color, normal turgor, no icterus, no cyanosis. HEENT: AT/NC, EOMI, PERRLA, mildly dry MM, no carotid bruits or JVD noted, mild rhinorrhea, yawning during evaluation. Lungs: Diminished, greater bases, appropriate effort, no rales, ronchi or wheezing. Heart: Mildly tachycardic with regular rhythm; no gallop, rub audible. Abdomen: Soft, NTTP, ND, hyperactive BS, no HSM. Extremities: No cyanosis, clubbing, or edema. Neurological: Patient awake, alert, oriented as noted, cognitive function intact; pupils equally reactive to light and accommodation, cranial nerves grossly normal, moving all 4 extremities, no focal deficits, strength preserved, restless. Psychiatric: Affect appears fatigued, restless, no acute evidence of depressive or anxiety feelings but does have underlying history. Results Lab / Micro Data 06/30/23 20:00 06/30/23 19:17 Labs: Laboratory Results - last 24 hr 06/30/23 19:17: WBC Cancelled, Corrected WBC Cancelled, RBC Cancelled, Hgb Cancelled, Hct Cancelled, MCV Cancelled, MCH Cancelled, MCHC Cancelled, RDW Std Deviation Cancelled, RDW Coeff of Roselyn Cancelled, Plt Count Cancelled, MPV Cancelled, Immature Gran % (Auto) Cancelled, Neut % (Auto) Cancelled, Lymph % (Auto) Cancelled, Hawkins % (Auto) Cancelled, Eos % (Auto) Cancelled, Baso % (Auto) Cancelled, Absolute Neuts (auto) Cancelled, Absolute Lymphs (auto) Cancelled, Total Counted Cancelled, Neutrophils % (Manual) Cancelled, Band Neutrophils % Cancelled, Lymphocytes % (Manual) Cancelled, Monocytes % (Manual) Cancelled, Eosinophils % (Manual) Cancelled, Basophils % (Manual) Cancelled, Metamyelocytes % Cancelled, Myelocytes % Cancelled, Promyelocytes % Cancelled, Blast Cells % Cancelled, Plasma Cell % (Manual) Cancelled, Other Cells % Cancelled, Nucleated RBC % Cancelled, Nucleated RBCs/100 WBC Cancelled, Differential Comment Cancelled, Diff Path Review Cancelled, Hypersegmented Neuts Cancelled, Atypical Lymphocytes Cancelled, Reactive Lymphocytes Cancelled, Smudge Cells Cancelled, Toxic Granulation Cancelled, Toxic Vacuolation Cancelled, Dohle Bodies Cancelled, Brie Rods Cancelled, Platelet Estimate Cancelled, Plt Morphology Comment Cancelled, RBC Morphology Cancelled 06/30/23 19:17: RBC Morphology Cancelled, Polychromasia Cancelled, Hypochromasia Cancelled, Poikilocytosis Cancelled, Basophilic Stippling Cancelled, Anisocytosis Cancelled, Microcytosis Cancelled, Macrocytosis Cancelled, Spherocytes Cancelled, Sickle Cells Cancelled, Target Cells Cancelled, Tear Drop Cells Cancelled, Ovalocytes Cancelled, Stomatocytes Cancelled, [place] Bodies Cancelled, Elier Cells Cancelled, Bite Cells Cancelled, Crenated Cell Cancelled, Acanthocytes (Spur) Cancelled, Rouleaux Cancelled, Schistocytes Cancelled, Sodium 139, Potassium 3.4 L, Chloride 107, Carbon Dioxide 26.0, Anion Gap 6, BUN 13, Creatinine 1.02, Estim Creat Clear Calc 98.41, Est GFR (MDRD) Af Amer 103, Est GFR (MDRD) Non-Af 85, BUN/Creatinine Ratio 12.7, Glucose 170 H, Calcium 8.8, Total Bilirubin 0.40, AST 9 L, ALT 33, Alkaline Phosphatase 87, Total Protein 6.9, Albumin 3.5, Globulin 3.4, Albumin/Globulin Ratio 1.0, Ethyl Alcohol < 3.0 06/30/23 19:19: Urine Opiates Screen NEGATIVE, Urine Methadone Screen NEGATIVE, Ur Barbiturates Screen NEGATIVE, Ur Phencyclidine Scrn NEGATIVE, Ur Amphetamines Screen POSITIVE H, MDMA (Ecstasy) Screen NEGATIVE, U Benzodiazepines Scrn NEGATIVE, Urine Cocaine Screen NEGATIVE, U Cannabinoids Screen NEGATIVE, Ur Drug Screen Comment 06/30/23 20:00: WBC 12.6 H, RBC 4.52 L, Hgb 13.2, Hct 41.4, MCV 91.6, MCH 29.2, MCHC 31.9 L, RDW Std Deviation 45.1 H, RDW Coeff of Roselyn 13.3, Plt Count 233, MPV 11.3, Immature Gran % (Auto) 0.500, Neut % (Auto) 67.9, Lymph % (Auto) 22.0, Hawkins % (Auto) 7.1, Eos % (Auto) 2.0, Baso % (Auto) 0.5, Absolute Neuts (auto) 8.6 H, Absolute Lymphs (auto) 2.77, Nucleated RBC % 0 Assessment & Plan Assessment/Plan (1) Opiate withdrawal: PLAN: Plan The patient is a 43 y/o M w/ PMHx: Anxiety and Depression, Tobacco use, Polysubstance abuse, Prior IVDA who presents to the [facility] ED on 06/30/23 with history of recently being in [facility] for the last several weeks where he went through withdrawal but also reports he was able to use while he was in [facility] now presents requesting detox from fentanyl. #1. Acute Opiate Withdrawal: Will admit to [facility], routine labs including CBC, CMP, urine for drug screen obtained in the ED, will initiate and continue on protocol with tapering course of Subutex, as needed tylenol, ibuprofen, bowel regimen, gabapentin, Bentyl, Vistaril, methocarbamol, clonidine, PRN nightly trazodone for insomnia, IV fluids, IV antiemetics. Once patient clinically improved and completion of taper nearing will plan consultation with case management for transition to next level of rehabilitation care. #2. Elevated BP without hypertensive diagnosis: Likely secondary to acute presentation but will continue to monitor and if remains elevated would add oral regimen, as needed IV hydralazine in interim. #3. Hyperglycemia: Possibly stress response, admission glucose 170, hemoglobin once he request to be cautious but again low suspicion. #4. Hypokalemia: Admission K+ 3.4, magnesium level request, supplementation given, repeat level in AM. #5. Mild leukocytosis: Unclear etiology, possibly hydration, stress response, no obvious evidence of acute infection, afebrile, may repeat CBC if concerns arise. #6. Polysubstance Abuse, IVDA Hx: Recent 03/2023 admission with HIV and hepatitis C negative, hepatitis B surface antibody positive but antigen negative. UDS with positive amphetamine. Encourage clean status. #7. Anxiety and depression: Patient is not on chronic regimen, given certainly contributes to substance abuse, will continue to encourage counseling and treatment as needed with 180. CM/SW consulted. #8. Tobacco Abuse: Encouraged cessation, inpatient consultation per RT, NR if desired. #9. DVT prophylaxis: Low risk. Charges/Coding Visit Charges Inpatient E&M: 25237 Init Hosp L3
[2023-06-30 21:08] VITALS: BP 129/66; PULSE 96; RESP 20; TEMP 36.9; O2SAT 98
[2023-06-30 21:27] VITALS: BMI 29.2
[2023-06-30 21:32] VITALS: BP 113/82; PULSE 90; RESP 18; TEMP 36.8; O2SAT 97
[2023-06-30] MEDS: Methocarbamol 750 MG Tablet PO (21:59)
[2023-06-30] MEDS: Potassium Chloride Oral Tablet 20 MEQ 40 MEQ PO (21:59)
[2023-06-30] MEDS: traZODone 100 MG Tablet PO (21:59)
[2023-06-30] MEDS: hydrOXYzine PAM 25 MG Capsule 50 MG PO (21:59)
[2023-06-30] MEDS: Buprenorphine HCl 2 MG TAB.SUBL SL (22:08)
[2023-07-01 02:00] VITALS: BP 112/67; PULSE 82; RESP 16; TEMP 36.6
[2023-07-01 04:09] LABS: Hemoglobin A1c 5.4 % (3.8-5.6)
[2023-07-01] MEDS: hydrOXYzine PAM 25 MG Capsule 50 MG PO ×2 (05:34→12:02)
[2023-07-01] MEDS: Buprenorphine HCl 2 MG TAB.SUBL SL ×3 (05:34→21:38)
[2023-07-01 05:37] VITALS: BP 115/63; PULSE 86; RESP 16; TEMP 36.6; O2SAT 97
--- NOTE | 2023-07-01 07:29 | PCM.PN.HOSP ---
Reason for Visit Reason for Visit: Diagnoses Opioid use, unspecified with withdrawal (06/30/23) Objective Data Objective Data Vital Signs: Vital Signs Temp Pulse Resp BP Pulse Ox O2 Del Method 97.8 F 86 16 115/63 97 Room Air 07/01/23 05:37 07/01/23 05:37 07/01/23 05:37 07/01/23 05:37 07/01/23 05:37 07/01/23 05:37 Oxygen Delivery Method Room Air Weight: 92.6 kg Body Mass Index (BMI) 29.2 Lab / Micro Data 06/30/23 20:00 06/30/23 19:17 Labs: Laboratory Results - last 24 hr 06/30/23 19:17: WBC Cancelled, Corrected WBC Cancelled, RBC Cancelled, Hgb Cancelled, Hct Cancelled, MCV Cancelled, MCH Cancelled, MCHC Cancelled, RDW Std Deviation Cancelled, RDW Coeff of Roselyn Cancelled, Plt Count Cancelled, MPV Cancelled, Immature Gran % (Auto) Cancelled, Neut % (Auto) Cancelled, Lymph % (Auto) Cancelled, Edwards % (Auto) Cancelled, Eos % (Auto) Cancelled, Baso % (Auto) Cancelled, Absolute Neuts (auto) Cancelled, Absolute Lymphs (auto) Cancelled, Total Counted Cancelled, Neutrophils % (Manual) Cancelled, Band Neutrophils % Cancelled, Lymphocytes % (Manual) Cancelled, Monocytes % (Manual) Cancelled, Eosinophils % (Manual) Cancelled, Basophils % (Manual) Cancelled, Metamyelocytes % Cancelled, Myelocytes % Cancelled, Promyelocytes % Cancelled, Blast Cells % Cancelled, Plasma Cell % (Manual) Cancelled, Other Cells % Cancelled, Nucleated RBC % Cancelled, Nucleated RBCs/100 WBC Cancelled, Differential Comment Cancelled, Diff Path Review Cancelled, Hypersegmented Neuts Cancelled, Atypical Lymphocytes Cancelled, Reactive Lymphocytes Cancelled, Smudge Cells Cancelled, Toxic Granulation Cancelled, Toxic Vacuolation Cancelled, Dohle Bodies Cancelled, Brie Rods Cancelled, Platelet Estimate Cancelled, Plt Morphology Comment Cancelled, RBC Morphology Cancelled 06/30/23 19:17: RBC Morphology Cancelled, Polychromasia Cancelled, Hypochromasia Cancelled, Poikilocytosis Cancelled, Basophilic Stippling Cancelled, Anisocytosis Cancelled, Microcytosis Cancelled, Macrocytosis Cancelled, Spherocytes Cancelled, Sickle Cells Cancelled, Target Cells Cancelled, Tear Drop Cells Cancelled, Ovalocytes Cancelled, Stomatocytes Cancelled, [place] Bodies Cancelled, [place] Cells Cancelled, Bite Cells Cancelled, Crenated Cell Cancelled, Acanthocytes (Spur) Cancelled, Rouleaux Cancelled, Schistocytes Cancelled, Sodium 139, Potassium 3.4 L, Chloride 107, Carbon Dioxide 26.0, Anion Gap 6, BUN 13, Creatinine 1.02, Estim Creat Clear Calc 98.41, Est GFR (MDRD) Af Amer 103, Est GFR (MDRD) Non-Af 85, BUN/Creatinine Ratio 12.7, Glucose 170 H, Calcium 8.8, Magnesium 2.0, Total Bilirubin 0.40, AST 9 L, ALT 33, Alkaline Phosphatase 87, Total Protein 6.9, Albumin 3.5, Globulin 3.4, Albumin/Globulin Ratio 1.0, Ethyl Alcohol < 3.0 06/30/23 19:19: Urine Opiates Screen NEGATIVE, Urine Methadone Screen NEGATIVE, Ur Barbiturates Screen NEGATIVE, Ur Phencyclidine Scrn NEGATIVE, Ur Amphetamines Screen POSITIVE H, MDMA (Ecstasy) Screen NEGATIVE, U Benzodiazepines Scrn NEGATIVE, Urine Cocaine Screen NEGATIVE, U Cannabinoids Screen NEGATIVE, Ur Drug Screen Comment 06/30/23 20:00: WBC 12.6 H, RBC 4.52 L, Hgb 13.2, Hct 41.4, MCV 91.6, MCH 29.2, MCHC 31.9 L, RDW Std Deviation 45.1 H, RDW Coeff of Roselyn 13.3, Plt Count 233, MPV 11.3, Immature Gran % (Auto) 0.500, Neut % (Auto) 67.9, Lymph % (Auto) 22.0, Edwards % (Auto) 7.1, Eos % (Auto) 2.0, Baso % (Auto) 0.5, Absolute Neuts (auto) 8.6 H, Absolute Lymphs (auto) 2.77, Nucleated RBC % 0, Hemoglobin A1c 5.4 Physical Exam Narrative GENERAL: cooperative HEENT: Atraumatic; normocephalic EYES; Anicteric, Normal Conjunctiva NECK; supple, normal thyroid, RESPIRATORY: Diminished to auscultation CARDIOVASCULAR: Regular S1 S2, GI: soft, normoactive bowel sounds, : No Renal angle tenderness; EXTREMITIES: No edema, no clubbing, MUSCULOSKELETAL: Restricted movement in the left shoulder NEURO: Awake; no lateralizing signs. SKIN: No Rash PSYCH; Flat affect Assessment & Plan Assessment/Plan (1) Opiate withdrawal: PLAN: Plan Patient is a 43-year-old male with history of polysubstance dependence presented with acute opioid withdrawal 1. Acute opioid withdrawal ? Admitted to regular nursing floor managed with Subutex taper in addition to adjuvant medications for symptomatic treatment 2. Hypokalemia ? Present on admission corrected per protocol 3. Left shoulder pain with restricted movement ? Given patient history of IV drug use concern for possible septic joint entertained. Did order for blood cultures, CRP ESR as well as plain x-ray consult placed to Dr. Marcio Ellison with orthopedic surgery for possible joint aspiration will defer antibiotics for now. Of note patient has elevated white cell count repeat ordered for 07/02/2023 4. Tobacco dependence - Counseled on cessation, offered nicotine patch for tobacco cravings 5. Depression with anxiety ? Patient to follow-up with primary care physician for management once discharged 6. DVT prophylaxis ? Low risk did encourage ambulation Time spent in the patient's overall evaluation,decision-making process, review of diagnostic data, adjustment of management, discussion with other providers, nursing nursing and ancillary staff involved in patient's care documentation, 50 Minutes Charges/Coding Visit Charges Inpatient E&M: 58128 [facility] Hosp L3
[2023-07-01 08:04] VITALS: BP 116/66; PULSE 72; RESP 18; TEMP 36.6; O2SAT 99
--- NOTE | 2023-07-01 09:10 | RAD_ITS ---
INDICATION: pain EXAMINATION/TECHNIQUE: X-RAY - LEFT XR Shoulder Min 2 Views 4 VIEWS COMPARISON: Prior study dated: December 05, 2016 FINDINGS: SOFT TISSUES: No soft tissue swelling or gas. No radiopaque foreign body. BONES/JOINTS: No acute fracture or subluxation.. Normal alignment. There are mild degenerative changes of the acromioclavicular joint. No sclerotic or destructive changes observed. RAD/Shoulder min 2 Views IMPRESSION: Degenerative changes of the acromioclavicular joint. Electronically Signed: Dafne Reyes MD at 9:50 EDT ,
--- NOTE | 2023-07-01 09:52 | CON.PCM.OR_ITS ---
HPI Consult Data Date of Consult: 07/01/23 HPI Narrative HPI Narrative: IMELDA TOM, is a 43 M who presents with L shoulder pain, concern from Dr. Encarnacion with possible infection or septic joint. Patient states shoulder has been painful for 2 years, had his arm forcefully pulled in an industrial type accident, has hurt anteriorly since then, a bit worse over the last 2 weeks but no fevers chills redness warmth or drainage. Pain level is 10. always there. felt like perhaps his arm subluxed at the time, and there was a pop and weakness after the original injury. he does do fentanyl but only snorting it no putting in veins/iv use in 2 years. presented for withdraw symptoms yesterday evening. [facility] Medical History Anxiety and depression History of intravenous drug abuse Methamphetamine use Opiate abuse, episodic Polysubstance abuse Tobacco abuse Home Medications NK 06/30/23 [History Last Taken Unknown] Allergy/AdvReac Type Severity Reaction Status Date / Time Fish Containing Products Allergy Intermediate Swelling Verified 06/30/23 18:04 Family History Father Opiate abuse, continuous Heart disease Hypertension Mother Heart disease Hypertension Brother Opiate abuse, continuous Surgical History History of dental surgery Social History household members: other details: Lives with his mother and his brother. Smoking Status: Current every day smoker tobacco type: cigarettes alcohol intake: never substance use type: heroin, amphetamines, methamphetamine and other details: Hx prior IVDA->transitioned to snorting. Vital Signs Vital Signs Vital Signs: 06/30/23 18:04 06/30/23 21:08 06/30/23 21:32 Temperature 97 F L 98.5 F 98.2 F Temperature Source Temporal Temporal Oral Pulse Rate 104 H 96 90 Pulse Strength Respiratory Rate 16 20 H 18 Blood Pressure 156/82 H 129/66 H 113/82 H Blood Pressure Mean 106 87 92 Blood Pressure Source Monitor Blood Pressure Position Semi-Fowlers Blood Pressure Location Left Arm Pulse Ox 99 98 97 Oxygen Delivery Method Room Air Room Air Room Air 07/01/23 05:37 07/01/23 02:00 07/01/23 08:04 Temperature 97.8 F 97.9 F 97.8 F Temperature Source Temporal Temporal Oral Pulse Rate 86 82 72 Pulse Strength Respiratory Rate 16 16 18 Blood Pressure 115/63 112/67 116/66 Blood Pressure Mean 80 82 82 Blood Pressure Source Monitor Monitor Monitor Blood Pressure Position Semi-Fowlers Semi-Fowlers Semi-Fowlers Blood Pressure Location Left Arm Left Arm Left Arm Pulse Ox 97 99 Oxygen Delivery Method Room Air Room Air 07/01/23 08:11 07/01/23 08:04 Temperature Temperature Source Pulse Rate Pulse Strength Normal (2+) Respiratory Rate Blood Pressure Blood Pressure Mean Blood Pressure Source Blood Pressure Position Blood Pressure Location Pulse Ox Oxygen Delivery Method Room Air Weight Weight: 204 lb 2.369 oz Body Mass Index (BMI) 29.2 Physical Exam Const alert, oriented x3 and no apparent distress HEENT normocephalic Resp normal respiratory effort Extremity normal capillary refill Extremity Narrative: Left shoulder closed, nicotine patch, no redness, warmth or drainage, no swelling, some mild atrophy in the supra and infra spinatous fossa, mild pain to palpate anteriorly, no pain at ACJ / SCJ / clavicle. no effusion. mild pain on full FE and ER, but able to actively and passively FE to 160, and ER to 45. no pain with micro motion. Full elbow hand and wrist rom. normal motor and sens mru and ain/pin. strong radial pulse. weak FE 4/5. poor muscle bulk overall. Lab / Micro Data Attestation: I reviewed the patient's lab results. 06/30/23 20:00 06/30/23 19:17 Labs: Laboratory Results - last 24 hr 06/30/23 19:17: WBC Cancelled, Corrected WBC Cancelled, RBC Cancelled, Hgb Cancelled, Hct Cancelled, MCV Cancelled, MCH Cancelled, MCHC Cancelled, RDW Std Deviation Cancelled, RDW Coeff of Roselyn Cancelled, Plt Count Cancelled, MPV Cancelled, Immature Gran % (Auto) Cancelled, Neut % (Auto) Cancelled, Lymph % (Auto) Cancelled, Doug[place] % (Auto) Cancelled, Eos % (Auto) Cancelled, Baso % (Auto) Cancelled, Absolute Neuts (auto) Cancelled, Absolute Lymphs (auto) Cancelled, Total Counted Cancelled, Neutrophils % (Manual) Cancelled, Band Neutrophils % Cancelled, Lymphocytes % (Manual) Cancelled, Monocytes % (Manual) Cancelled, Eosinophils % (Manual) Cancelled, Basophils % (Manual) Cancelled, Metamyelocytes % Cancelled, Myelocytes % Cancelled, Promyelocytes % Cancelled, Blast Cells % Cancelled, Plasma Cell % (Manual) Cancelled, Other Cells % Cancelled, Nucleated RBC % Cancelled, Nucleated RBCs/100 WBC Cancelled, Differential Comment Cancelled, Diff Path Review Cancelled, Hypersegmented Neuts Cancelled, Atypical Lymphocytes Cancelled, Reactive Lymphocytes Cancelled, Smudge Cells Cancelled, Toxic Granulation Cancelled, Toxic Vacuolation Cancelled, Dohle Bodies Cancelled, Brie Rods Cancelled, Platelet Estimate Cancelled, Plt Morphology Comment Cancelled, RBC Morphology Cancelled 06/30/23 19:17: RBC Morphology Cancelled, Polychromasia Cancelled, Hypochromasia Cancelled, Poikilocytosis Cancelled, Basophilic Stippling Cancelled, [place] cytosis Cancelled, Microcytosis Cancelled, Macrocytosis Cancelled, Spherocytes Cancelled, Sickle Cells Cancelled, Target Cells Cancelled, Tear Drop Cells Cancelled, Ovalocytes Cancelled, Stomatocytes Cancelled, [place] Bodies Cancelled, [place] Cells Cancelled, Bite Cells Cancelled, Crenated Cell Cancelled, Acanthocytes (Spur) Cancelled, Rouleaux Cancelled, Schistocytes Cancelled, Sodium 139, Potassium 3.4 L, Chloride 107, Carbon Dioxide 26.0, Anion Gap 6, BUN 13, Creatinine 1.02, Estim Creat Clear Calc 98.41, Est GFR (MDRD) Af Amer 103, Est GFR (MDRD) Non-Af 85, BUN/Creatinine Ratio 12.7, Glucose 170 H, Calcium 8.8, Magnesium 2.0, Total Bilirubin 0.40, AST 9 L, ALT 33, Alkaline Phosphatase 87, Total Protein 6.9, Albumin 3.5, Globulin 3.4, Albumin/Globulin Ratio 1.0, Ethyl Alcohol < 3.0 06/30/23 19:19: Urine Opiates Screen NEGATIVE, Urine Methadone Screen NEGATIVE, Ur Barbiturates Screen NEGATIVE, Ur Phencyclidine Scrn NEGATIVE, Ur Amphetamines Screen POSITIVE H, MDMA (Ecstasy) Screen NEGATIVE, U Benzodiazepines Scrn NEGATIVE, Urine Cocaine Screen NEGATIVE, U Cannabinoids Screen NEGATIVE, Ur Drug Screen Comment 06/30/23 20:00: WBC 12.6 H, RBC 4.52 L, Hgb 13.2, Hct 41.4, MCV 91.6, MCH 29.2, MCHC 31.9 L, RDW Std Deviation 45.1 H, RDW Coeff of Roselyn 13.3, Plt Count 233, MPV 11.3, Immature Gran % (Auto) 0.500, Neut % (Auto) 67.9, Lymph % (Auto) 22.0, [place] % (Auto) 7.1, Eos % (Auto) 2.0, Baso % (Auto) 0.5, Absolute Neuts (auto) 8.6 H, Absolute Lymphs (auto) 2.77, Nucleated RBC % 0, Hemoglobin A1c 5.4 Radiology Impression Shoulder X-Ray 07/01/23 09:10 IMPRESSION: Degenerative changes of the acromioclavicular joint. Electronically Signed: Dafne Reyes MD at 9:50 EDT , agree, nil acute. Assessment & Plan Assessment/Plan (1) Left shoulder pain: PLAN: 43 M L shoulder pain, seems moreso chronic. Low grade white count, temp 98, no recent IV drug use, with normal exam. No suspicion of infection here nor septic joint. Possibly had a labrum tear, slap tear or RC tear in the remote past that is recently aggravated. If things change in terms of infectious signs, would recommend MRI w and without contrast, but will not order as no suspicion at the moment. I can FU the patient as outpatient if he desires to arrange for non urgent MRI. Ortho will not follow but call with change in status or concerns please and thank you for the consult.
[2023-07-01 10:47] LABS: Erythrocyte Sedimentation Rate 2 mm/hr (0-20)
[2023-07-01 11:57] VITALS: BP 122/66; PULSE 86; RESP 18; TEMP 37.1; O2SAT 96
[2023-07-01] MEDS: cloNIDine HCl 0.1 MG Tablet PO (12:02)
[2023-07-01 16:44] VITALS: BP 107/60; PULSE 77; RESP 18; TEMP 36.3; O2SAT 97
--- NOTE | 2023-07-01 16:47 | NURSING ---
in to assess withdrawl symptoms and vs. noted patient sl. more drowsy and falling asleep during conversation then awakes and converses appropriately. no distress noted. call light within reach.
[2023-07-01 20:44] VITALS: BP 108/61; PULSE 71; RESP 16; TEMP 36.6; O2SAT 95
[2023-07-01] MEDS: traZODone 100 MG Tablet PO (21:38)
[2023-07-01] MEDS: Methocarbamol 750 MG Tablet PO (21:38)
[2023-07-02 05:43] VITALS: BP 112/76; PULSE 84; RESP 16; TEMP 36.6; O2SAT 98
[2023-07-02] MEDS: Buprenorphine HCl 2 MG TAB.SUBL SL ×3 (05:44→21:27)
[2023-07-02] MEDS: Methocarbamol 750 MG Tablet PO (05:44)
[2023-07-02] MEDS: hydrOXYzine PAM 25 MG Capsule 50 MG PO ×3 (05:44→21:34)
--- NOTE | 2023-07-02 07:41 | PN.HOSP_ITS ---
Reason for Visit Reason for Visit: Diagnoses Opioid use, unspecified with withdrawal (06/30/23) Pain in left shoulder (06/30/23) Subjective Subjective Still with left shoulder pain. Objective Data Objective Data Vital Signs: Vital Signs Temp Pulse Resp BP Pulse Ox O2 Del Method 36.6 C 84 16 112/76 98 Room Air 07/02/23 05:43 07/02/23 05:43 07/02/23 05:43 07/02/23 05:43 07/02/23 05:43 07/02/23 05:43 Oxygen Delivery Method Room Air Weight: 92.6 kg Body Mass Index (BMI) 29.2 Intake & Output: Intake and Output for Last 24 Hours 06/30/23 07/01/23 07/02/23 23:59 23:59 23:59 Intake Total 1200 / 1200 Balance 1200 / 1200 Lab / Micro Data 07/02/23 08:15 07/02/23 08:05 Labs: Laboratory Results - last 24 hr 07/01/23 09:57: ESR 2 Radiography Diagnostic Testing: Radiology Impression Shoulder X-Ray 07/01/23 09:10 IMPRESSION: Degenerative changes of the acromioclavicular joint. Electronically Signed: Dafne Reyes MD at 9:50 EDT , Physical Exam Const alert and no apparent distress HEENT head/scalp atraumatic and moist oral mucous membranes Extremity Extremity Narrative: left shoulder pain. difficulty w abduction of left shoulder. no warmth, no effusion. Assessment & Plan Assessment/Plan (1) Opiate withdrawal: PLAN: Buprenorphine taper Addiction medicine to see for outpt program. (2) Hypokalemia: PLAN: replaced (3) Left shoulder pain: PLAN: seen by orthopaedics. Low suspicion for infectious. Etiology could be labrum tear, slap tear or RC tear. Follow up with orthopaedics PRN. (4) Bacteremia: PLAN: 1 of 2. May be contaminant Follow up with cultures. PLAN: Plan Chronic conditons: * Tobacco dependence - Counseled on cessation, offered nicotine patch for [facility] oncology account specialist cravings * Depression with anxiety? Patient to follow-up with primary care physician for management once discharged DVT prophylaxis? Low risk did encourage ambulation Monitor overnight. Plan for discharge on 07/03, unless 2nd blood culture is positive. Charges/Coding Visit Charges Inpatient E&M: 24484 Subs Hosp L2
[2023-07-02 08:31] LABS: Absolute Lymphocyte Count 3.26 X10^3/uL (0.83-4.51); Absolute Neutrophil Count 4.5 X10^3/uL (2.0-7.7); Basophil# 0.08 X10^3/uL; Basophil% 0.9 % (0-1); Eosinophil# 0.37 X10^3/uL; Eosinophils% 4.1 % (0-5); Hematocrit 39.5 % (40-54); Hemoglobin 12.5 g/dL (13.0-16.5); Lymphocyte # 3.26 X10^3/ul (0.83-4.51); Lymphocyte % 35.7 % (19-41); Mean Corp Hgb Conc 31.6 g/dL (32-36); Mean Corpuscular Hgb 30.2 pg (27.0-32.0); Mean Corpuscular Volume 95.4 fL (80-94); Mean Platelet Vol. 10.1 fl (6.2-12.0); Monocyte# 0.87 X10^3/uL; Monocyte% 9.5 % (0-10); NRBC Flagged by Analyzer 0 % (0-5); Neutrophil # 4.47 X10^3/uL (2.7-7.7); Neutrophil % 48.9 % (47-70); Platelet Count 277 K/mm3 (150-450); RBC Distribution Width CV 13.6 % (11.6-14.6); RBC Distribution Width SD 48.1 fl (35.1-43.9); Red Blood Count 4.14 M/mm3 (4.6-6.2); White Blood Count 9.1 K/mm3 (4.4-11.0)
[2023-07-02 08:50] VITALS: O2SAT 98
[2023-07-02 09:09] LABS: Anion Gap 4 (5-15); BUN 12 mg/dL (7-18); Calcium,Total 8.1 mg/dL (8.5-10.1); Chloride 111 mmol/L (98-107); Creatinine, Serum 0.86 mg/dL (0.70-1.30); EST Glomerular Filtration Rate 105 mL/min (>60); Est Glom Filt Rate - Afr Amer 127 mL/min (>60); Estimated Creatinine Clearance 116.72 ml/min; Glucose 117 mg/dL (74-106); Potassium 4.5 mmol/L (3.5-5.1); Sodium Level 140 mmol/L (136-145)
[2023-07-02] MEDS: Gabapentin 300 MG Capsule PO (10:37)
[2023-07-02 10:51] VITALS: BP 108/56; PULSE 87; RESP 18; TEMP 36.8; O2SAT 99
--- NOTE | 2023-07-02 13:11 | ADDICTION ---
This selling underwriter met with PT to conduct ASAM, MSE, AUDIT, DUDIT assessments and to plan for d/c. PT A+Ox4 and participated actively. All assessments completed, and placed in PT's chart. PT plans to f/u with individual counselor at [facility] for outpatient treatment services. PT did not indicate a need for transportation post d/c from [facility].
[2023-07-02 15:34] VITALS: BP 118/76; PULSE 85; RESP 16; TEMP 36.5; O2SAT 98
[2023-07-02 21:31] VITALS: BP 136/68; PULSE 90; RESP 16; TEMP 36.7; O2SAT 98
[2023-07-02] MEDS: traZODone 100 MG Tablet PO (21:34)
[2023-07-03] MEDS: hydrOXYzine PAM 25 MG Capsule 50 MG PO (05:22)
[2023-07-03 05:24] VITALS: BP 116/64; PULSE 86; RESP 16; TEMP 36.6; O2SAT 98
--- NOTE | 2023-07-03 07:35 | PCM.PN.HOSP ---
Reason for Visit Reason for Visit: Diagnoses Hypokalemia (06/30/23) Opioid use, unspecified with withdrawal (06/30/23) Pain in left shoulder (06/30/23) Bacteremia (06/30/23) Subjective Subjective Feels well. No events. Objective Data Objective Data Vital Signs: Vital Signs Temp Pulse Resp BP Pulse Ox O2 Del Method 36.6 C 86 16 116/64 98 Room Air 07/03/23 05:07/03/23 05:07/03/23 05:07/03/23 05:24 07/03/23 05:07/03/23 05:24 Oxygen Delivery Method Room Air Weight: 92.6 kg Body Mass Index (BMI) 29.2 Intake & Output: Intake and Output for Last 24 Hours 07/01/23 07/02/23 07/03/23 23:59 23:59 23:59 Intake Total 1200 / 1200 1250 / 1450 500 / 500 Balance 1200 / 1200 1250 / 1450 500 / 500 Lab / Micro Data 07/02/23 08:15 07/02/23 08:05 Labs: Laboratory Results - last 24 hr 07/02/23 08:05: Sodium 140, Potassium 4.5, Chloride 111 H, Carbon Dioxide 25.0, Anion Gap 4 L, BUN 12, Creatinine 0.86, Estim Creat Clear Calc 116.72, Est GFR (MDRD) Af Amer 127, Est GFR (MDRD) Non-Af 105, BUN/Creatinine Ratio 14.0, Glucose 117 H, Calcium 8.1 L 07/02/23 08:15: WBC 9.1, RBC 4.14 L, Hgb 12.5 L, Hct 39.5 L, MCV 95.4 H, MCH 30.2, MCHC 31.6 L, RDW Std Deviation 48.1 H, RDW Coeff of Roselyn 13.6, Plt Count 277, MPV 10.1, Immature Gran % (Auto) 0.900, Neut % (Auto) 48.9, Lymph % (Auto) 35.7, Long % (Auto) 9.5, Eos % (Auto) 4.1, Baso % (Auto) 0.9, Absolute Neuts (auto) 4.5, Absolute Lymphs (auto) 3.26, Nucleated RBC % 0 Micro: Microbiology 07/01/23 09:57 Blood Culture (Wb) - Right Hand Bacteria Detection (PCR) - Final Staphylococcus epidermidis 07/01/23 09:57 Blood Culture (Wb) - Right Hand Blood Culture - Preliminary Physical Exam Const alert and no apparent distress HEENT head/scalp atraumatic and moist oral mucous membranes Assessment & Plan Assessment/Plan (1) Opiate withdrawal: PLAN: Buprenorphine taper completed [facility] (2) Hypokalemia: PLAN: replaced (3) Left shoulder pain: QUALIFIERS: Chronicity: chronic Qualified Code(s): M25.512 - Pain in left shoulder; G89.29 - Other chronic pain PLAN: seen by orthopaedics. Low suspicion for infectious. Etiology could be labrum tear, slap tear or RC tear. Follow up with orthopaedics PRN. (4) Bacteremia: PLAN: 1 of 2. Positive for S. epidermidis. Given the organism, in only 1 of 2 sets suggests that this a contaminant. No additional work up. PLAN: Plan Chronic conditons: Tobacco dependence - Counseled on cessation, offered nicotine patch for tobacco cravings Depression with anxiety? Patient to follow-up with primary care physician for management once discharged
[2023-07-03 08:09] VITALS: O2SAT 98
[2023-07-03 10:25] VITALS: BP 126/76; PULSE 91; RESP 18; TEMP 36.5; O2SAT 95
[2023-07-03] MEDS: Buprenorphine HCl 2 MG TAB.SUBL SL (10:25)
--- NOTE | 2023-07-03 12:32 | PCM.DC.SUM ---
Providers Date of Admission: 06/30/23 Primary Care Physician: No Primary Care Phys Consultations 07/01/23 09:06 Consult: Orthopedics Routine Consulting Provider: Marcio Ellison Reason for Consult: L shoulder pain EMERGENT Consult: No MD Notified: Yes Date Notified: 07/01/23 Time Notified: 09:06 Method of Notification: Verbal Reason For Visit: ACUTE OPIATE WITHDRAWAL Diagnosis Discharge Diagnosis (1) Opiate withdrawal: Status: Acute Code(s): F11.93 - Opioid use, unspecified with withdrawal Plan: Buprenorphine taper completed Patient to follow up with [facility] as outpt. (2) Hypokalemia: Status: Acute Code(s): E87.6 - Hypokalemia Plan: replaced (3) Left shoulder pain: Status: Inactive Code(s): M25.512 - Pain in left shoulder Qualifiers: Chronicity: chronic Qualified Code(s): M25.512 - Pain in left shoulder; G89.29 - Other chronic pain Plan: seen by orthopaedics. Low suspicion for infectious. Etiology could be labrum tear, slap tear or RC tear. Follow up with orthopaedics PRN. (4) Bacteremia: Status: Acute Code(s): R78.81 - Bacteremia Plan: 1 of 2. Positive for S. epidermidis. Given the organism, in only 1 of 2 sets suggests that this a contaminant. No additional work up. Plan Chronic conditons: Tobacco dependence - Counseled on cessation, offered nicotine patch for tobacco cravings Depression with anxiety? Patient to follow-up with primary care physician for management once discharged Medications at Discharge Home Medications NK 06/30/23 Hospital Course Operations None Procedures None Summary of Care Provided Minutes Spent on Discharge: 28 Weight / BMI Weight Weight: 92.6 kg Body Mass Index (BMI) 29.2 ABG / Lab / Microbiology Data 07/02/23 08:15 07/02/23 08:05 Microbiology: Microbiology 07/01/23 09:55 Blood Culture (Wb) - Venous Blood Culture - Preliminary No growth in 48 hours. 07/01/23 09:57 Blood Culture (Wb) - Right Hand Bacteria Detection (PCR) - Final Staphylococcus epidermidis 07/01/23 09:57 Blood Culture (Wb) - Right Hand Blood Culture - Preliminary Coag Negative Staph D/C Instructions Discharge Diet: No restrictions Meaningful Use Info Meaningful Use Diagnoses (Choose all that apply): None applicable Discharge Plan Admission Admit Date/Time: 06/30/23 20:36 Primary Reason for Your Visit: opiate withdrawal Attending Provider: Bigg Gupta Primary Care Provider: Care Physician,No Primary Consulting Providers: Rose Ordonez; Marcio Ellison; Amari Encarnacion Instructions Additional Instructions / Restrictions: [facility] and [facility]. Discharge Orders/Prescriptions Prescriptions: No Action NK Referrals / Follow Up: Care Physician,No Primary [Primary Care Provider] - Disposition Disposition (needs filled in before D/C Order can be placed): Home, Self Care Charges/Coding Visit Charges Inpatient E&M: 55992 Disch Hosp
== END 2023-07-03 13:30 | disposition home or self-care (01) | DRG 772 ==
LOC: ED 20:36 → MS3 07-01 07:23
PROVIDERS: Internal Medicine; Admitting Provider Family Medicine; Emergency Provider Emergency Medicine
DX: F11.13 Opioid abuse with withdrawal (principal); F15.10 Other stimulant abuse, uncomplicated; E87.6 Hypokalemia; F32.A Depression, unspecified; M25.512 Pain in left shoulder; F41.9 Anxiety disorder, unspecified; F17.210 Nicotine dependence, cigarettes, uncomplicated; R03.0 Elevated blood-pressure reading, without diagnosis of hypertension; R73.9 Hyperglycemia, unspecified; G89.29 Other chronic pain
CPT/HCPCS: 36415; 73030; 80048; 80053; 80307; 82077; 83036; 83735; 85025; 85652; 87040; 87149; 99221; 99283; 99285; 99406; G0378